=== PATIENT | male | born 1935 | race Caucasian/White ===

== ENCOUNTER 2017-04-26 10:31 | Inpatient (IN) | payer MEDICARE ==
[~2017-04-26] VITALS: Ht 172.7 cm; Wt 97.3 kg
--- NOTE | ~2017-04-26 | PR ---
[place], [place] PROGRESS NOTE NAME: CITLALLI CANTU [facility]: [id number] UNIT #: [id number] ROOM: 515 DOCTOR: MAYKEL Garcia,AZAR BIRTHDATE: [birth year] DOS: 05/02/2017 WOUND CARE FOLLOWUP NOTE SUBJECTIVE: The patient was seen today, his dressings were removed. He states he feels his legs are getting better. His breathing is comfortable, but does sometimes get short of breath when the oxygen is taken off. His daughter is at the bedside. He is going to be going home with home health that is planned when he is ready for discharge. OBJECTIVE: VITAL SIGNS: Temperature of 97.7, pulse of 51, respirations 20, blood pressure is 126/82. The dressings are removed. The legs look a lot better. There is quite a bit of new epithelial tissue seen. The edema has improved as well. The cellulitis is definitely improved. So, overall, there is a large improvement in his wounds. His wound culture grew Klebsiella and Streptococcus agalactiae. He is maintained on vancomycin and cefepime. LABORATORY DATA: His labs show white count of 11.3, hemoglobin of 12.7 and platelets of 233. Chem-7; sodium of 141, potassium which is 2.8, chloride of 93, BUN of 23 and his creatinine is down to 1.31, glucose is 173. ASSESSMENT AND PLAN: Chronic leg ulcerations, likely secondary to venous insufficiency, chronic edema and peripheral vascular disease as well as diabetes. He did have a biopsy done, the report is still pending, it was sent to [facility] for special staining. I would continue with the current dressing changes. They do appear to be working and he should follow up in the Wound Clinic upon discharge. AZAR BRAR MD CM:PNTRANS [id number] AZAR BRAR M.D. 05/02/17 1435 interface
--- NOTE | ~2017-04-26 | PR ---
[place], [place] PROGRESS NOTE NAME: [facility]I [facility]U [id number] UNIT #: [id number] ROOM: 507 DOCTOR: MIS GUTHRIE MD BIRTHDATE: [birth year] DOS: 04/28/2017 SUBJECTIVE: The patient was seen and evaluated in followup of urinary retention, acute kidney injury. Overall, he is doing well. He is sitting upright in a chair. His Fontaine catheter was removed by the primary service earlier today. He has not yet voided and was taken out about an hour and a half ago. He is afebrile. Temperature is 98.2, pulse 82, respiratory rate 20, blood pressure 132/68, pulse ox 94%. He has no acute chest pains, shortness of breath, nausea, vomiting. He states that he is moving his bowels. His creatinine is down to 1.9 from 2.5 and 3.0. Again, his lisinopril and his Lasix have been transiently held. His output had been fairly good with about 1.9 liters of urine output on a daily basis since admission. PHYSICAL EXAMINATION: GENERAL: Elderly, obese gentleman, chronically ill appearing, disheveled on original appearance. Lower extremity wounds are dressed, obese centrally, limiting abdominal exam. LUNGS: Fairly clear anteriorly and without wheeze. CARDIOVASCULAR: Rate regular. No audible rub. EXTREMITIES: The peripheral pulses are intact in the arm. ASSESSMENT AND PLAN: 1. Acute kidney injury, likely retention and obstructive uropathy. 2. hypertension. Blood pressures are acceptably controlled. Continue to hold lisinopril and Lasix for now. May use p.r.n. diuretic doses as needed. Monitor serial renal functions. Baseline creatinine was around 1.3-1.5 going back about 3-5 years ago, likely indicating CKD stage III. MIS GUTHRIE MD CM:PNTRANS [id number] MIS GUTHRIE MD 04/29/17 0658 interface
--- NOTE | ~2017-04-26 | PR ---
[place], [place] PROGRESS NOTE NAME[id number] UNIT #: [id number] ROOM: 515 DOCTOR: MIS GUTHRIE MD BIRTHDATE: [birth year] DOS: 05/02/2017 Followup of acute kidney injury with obstruction, urinary retention, hematuria. SUBJECTIVE: The patient is doing well, diuresing very well. Weights do not appear to be coming down, but legs do look less swollen and somewhat wrinkled when his dressings were taken down. There are still significant erythematous and darkening skin wounds with multiple breakdowns, poor foot care in general. His intake and output have been negative several liters for the last couple of days, but weight is only down from 97.6 to 96.7. His electrolytes are stable except for continued hypokalemia, looks like it was low on Tuesday, but it was not replaced. Creatinine is steady at 1.3. He otherwise feels well . Lower extremity wound care continues. OBJECTIVE: VITAL SIGNS: 126/82, 20, 51, 97.7, 96%. GENERAL: Awake and alert, pleasant elderly gentleman, chronically ill appearing, lying in bed. HEENT: Extraocular muscles are intact. Sclerae anicteric. Oropharynx clear. NECK: No JVD or lymphadenopathy, no carotid bruit. LUNGS: Lung og are diminished at the bases. No audible wheeze. CARDIOVASCULAR: Rate is controlled. No audible rub. No palpable lift or heave. GENITOURINARY: Fontaine catheter continues to have some gross hematuria that is light velasco in nature. MUSCULOSKELETAL: Grossly deconditioned and wounds continue to be fairly significant. LABORATORY DATA AND DIAGNOSTICS: White blood cell count 11.3, hemoglobin 12.7, platelets 233. Sodium 141, potassium 2.8, chloride 93, bicarb 39, BUN 23, creatinine 1.3, glucose 175, calcium 7.9, albumin 2.4, phosphorus 2.6. ASSESSMENT AND PLAN: 1. Acute kidney injury, improving, likely secondary to urinary retention and potentially some prerenal conditions at admission, improved by discontinuation of Lasix and lisinopril and placement of Fontaine catheter. Since late last week has been back on lisinopril and Lasix. Blood pressures are well controlled for the most part and volume is improving. We started him on a higher dose of diuretics and a lower dose of lisinopril to try to diurese him more effectively. I would recommend a CTA to evaluate for possible PAD probably in the next day or two, but hold his diuretic for 24 hours prior to the contrast exposure. Would also provide Mucomyst 600-1200 mg p.o. b.i.d. starting the day prior to the contrast exposure for contrast injury prophylaxis of his kidneys. At that point if there is anything significant there, he may need to be further evaluated by a facility with vascular surgery on staff. He certainly needs better wound care of his lower extremities and consideration for having Podiatry see him while here would be a good idea. 2. Severe hypokalemia, likely secondary to diuresis, increase in his diet and we will replace with potassium chloride 40 IV and 20 t.i.d. orally. His past magnesium levels were okay. We will need to closely monitor on for that. [place], [place] PROGRESS NOTE NAME: ALONDRACITLALLI D UNIT #: [id number] ROOM: [facility] DOCTOR: MIS GUTHRIE MD BIRTHDATE: [birth year] Continue wound care per the primary service and Infectious Disease dosing antibiotics. MIS GUTHRIE MD CM:PNTRANS [id number] MIS GUTHRIE MD 05/03/17 0034 interface
--- NOTE | ~2017-04-26 | CON ---
[place], [place] REPORT OF CONSULTATION NAME: CITLALLI CANTU [facility] [id number] UNIT #: [id number] ROOM: 507 DOCTOR: RAYMOND CHOE ED.D) BIRTHDATE: [birth year] DOS: 04/26/2017 HISTORY OF PRESENT ILLNESS: The patient is an 81-year-old male referred by the hospitalist for competency evaluation. At the present time, this patient is on the 5th floor at [facility]. He is and has two daughters living and 1 . I did discuss this case with his daughter, Ysabel Saul in [place]. The patient stated he worked at [employer] in the past and has been retired for many years. He [facility] [place]. His medical history is pertinent for atrial fibrillation, hypertension, benign prostatic hypertrophy, diabetes mellitus. His medications include potassium chloride, Flomax, terazosin, vitamin D, Lopressor, Cardizem, Lasix, glipizide and insulin. This patient states he does drink 2 beers per day, but otherwise, he uses no alcoholic beverages or cigarettes. This patient was awake, alert and oriented in all 3 spheres. He knew where he was and he knew the date. He had no difficulty with current events, whatsoever. His short and his long-term memory appear to be fairly good and in my opinion, he is competent to make informed healthcare decisions. He does not like medical care and never did and therefore, avoids going to the doctor and then waits too long and at that point in time ends up needing to be admitted. His legs were in very bad condition and he has been to the Wound Clinic here at the hospital in the past. He states he is willing to do the wound clinic again and also take the antibiotics that are prescribed and also have visiting nurses once he is discharged home if he does not need rehabilitation. His daughter is coming in in the next day or two to ensure that all is well with his home care coverage. DIAGNOSIS: Depressive disorder, not otherwise specified. RECOMMENDATIONS: In my opinion, this patient is competent to make informed healthcare decisions. Thank you very much for this consult. RAYMOND WALKER, ED.D CM:CONSTR:REPORT OF CONSULTATION 1628 04/26/17 7654 interface
--- NOTE | ~2017-04-26 | PR ---
[place], [place] PROGRESS NOTE NAME: CITLALLI CANTU UNIT #: [id number] ROOM: 507 DOCTOR: MAYKEL GarciaAZAR BIRTHDATE: [birth year] DOS: 04/28/2017 FOLLOWUP WOUND CARE NOTE SUBJECTIVE: The patient reports no specific issues with his wounds. He says they are feeling about the same. OBJECTIVE: VITAL SIGNS: His temperature is 97.9, pulse of 82, respirations 18, blood pressure is 122/58. WOUND EXAMINATION: The dressings were removed. There was some moderate amount of bloody drainage noted on the Maxorb. There were no new areas of blistering that I could see. A lot of the necrotic tissue has already been removed either by the debridement or by TheraHoney and dressings. The area was cleansed. Overall, the wounds appear about the same as yesterday. I do not see a big difference; the erythema, perhaps, is a little bit improved. His wound culture from yesterday is negative so far. His white count is down to 9.5. His hemoglobin is 11.9. His BUN is also improving at 30 and creatinine of 1.9. Hemoglobin A1c is 7.6. The path report is not back yet from the biopsy. ASSESSMENT AND PLAN: Chronic ulcerations of bilateral lower extremities in a diabetic patient with chronic edema and multiple medical problems. We are awaiting the biopsy report. I would avoid any further compression than a Tubigrip for now as he has peripheral vascular disease, the exact degree is not known, according to the Doppler ultrasound. We should consider a CT angiogram; however, with his renal insufficiency, I would like to wait until Nephrology feels it is okay to go ahead and do that test to further define his arterial status. This patient will need prolonged wound care as these wounds are fairly extensive. He apparently does not qualify for home health because he is not homebound. Looks like he came to the Wound Clinic several years ago, however, it looks like he only came one time. I will encourage the patient to follow up in our Wound Clinic once he is medically stable. In the meantime, we will continue with the current dressings. [place], [place] PROGRESS NOTE NAME: CITLALLI CANTU UNIT #: [id number] ROOM: [facility] DOCTOR: AZAR BRAR M.D. BIRTHDATE: [birth year] AZAR BRAR MD CM:KRISH [id number] AZAR BRAR M.D. 04/28/17 1357 interface
--- NOTE | ~2017-04-26 | CON ---
[place], [place] REPORT OF CONSULTATION [id number] UNIT #: [id number] ROOM: 507 DOCTOR: MAYKEL GarciaAZAR BIRTHDATE: [birth year] DOS: 04/27/2017 WOUND CARE CONSULTATION HISTORY OF PRESENT ILLNESS: This is an 81-year-old male with multiple medical problems who was admitted to the Emergency Room Department for problems with voiding. He had had some urinary retention over the past week with associated abdominal discomfort and shortness of breath, which apparently is not unusual for him and chronic edema. He was noted to have severe urinary retention when he was admitted to the ER with some renal failure. He was also noted to have in the ED bilateral lower extremity edema, skin necrosis, ulceration of the bilateral lower extremities, elevated troponins and BNP were also elevated from the Emergency Room Department. The patient does have known cardiomyopathy, severe mitral regurgitation, and mild pulmonary hypertension. The patient was therefore admitted for these above problems. Wound care has been consulted for these lower extremity ulcerations and skin necrosis. PAST MEDICAL HISTORY: Significant for congestive heart failure, chronic atrial fibrillation, history of ischemic cardiomyopathy, baseline ejection fraction back in 2007 was 15%, hyperlipidemia, hypertension, insulin-dependent diabetes, severe mitral regurgitation, stasis dermatitis of both legs, vitamin D deficiency. PAST SURGICAL HISTORY: No previous surgeries. He does have a history of urinary retention in the past. He follows up at the [facility]; however, he says he only goes about 2 times a year. SOCIAL HISTORY: He lives alone, does not smoke or drink. He is a past smoker, quit 30 years ago. FAMILY HISTORY: Significant for diabetes in the mother and cerebral hemorrhage in the father. ALLERGIES: IRBESARTAN FROM AVAPRO and SIMVASTATIN. CURRENT MEDICATIONS: That have been ordered are as follows, Lovenox 30 subq daily, aspirin 81 daily, Lopressor 100 p.o. b.i.d. He is on vancomycin 1500 mg IV q.48h. He was on Zosyn that looks like it was discontinued. He is on Restoril 15 mg p.o. at bedtime, Zofran 4 mg IV q.6h. p.r.n., morphine 2 mg IV q.4h. p.r.n., [place] one tablet q.4h. p.r.n., Dulcolax p.r.n. and Tylenol p.r.n. REVIEW OF SYSTEMS: He says really he has had these chronic ulcerations for years. They come and go off and on according to the patient. The patient is somewhat of a poor historian and he does not really take care of them. He does not put any special dressings on them. He has never been to a wound clinic that he is aware of. He says he knows that he just has not been taking care of them when he should be. When asked about his diabetes, he says he does not check his sugars. He denies any specific pain with the legs at this time. He says his breathing is about the same as yesterday. He does have some chronic shortness of breath and some orthopnea and is unable to lay flat. He denies any chest [place], [place] REPORT OF CONSULTATION NAME: CITLALLI CANTU UNIT #: [id number] ROOM: 507 DOCTOR: AZAR BRAR M.D. BIRTHDATE: [birth year] pain, nausea, vomiting or diarrhea. PHYSICAL EXAMINATION: VITAL SIGNS: Temperature is 98.6, pulse is 78, respirations 18, blood pressure is 126/67, pulse ox is 99% on 2 liters nasal cannula. GENERAL: This is an elderly male who appears markedly debilitated, pale and in no acute distress. HEENT: His extraocular movements are intact. Sclerae are anicteric. Oropharynx is clear and moist. NECK: There is no lymphadenopathy. LUNGS: Mild rales in the bases. CARDIOVASCULAR: S1, S2, irregularly irregular. ABDOMEN: Protuberant, soft, positive bowel sounds, and nontender. EXTREMITIES: He has chronic indurated edema, chronic venous stasis changes of both of his lower extremities. Pulses were difficult to feel. His toes are warm. He has got severe onychomycosis, multiple necrotic lesions in his lower extremities. He has necrotic lesions on his feet. His anterior right foot has an open area. He has got large area of necrosis, worse on the left than the right. His pulses once again are difficult to feel due to this severe chronic indurated edema. The left lower extremity wound upon admission, per x-rays, he has extensive skin necrosis with the periphery being eschar mostly, but the middle of the wound being fibrin and slough, moist and weepy apparently looking according to the pictures, but today a lot of that has been removed with the honey it looks like. 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 Most of multiple eschar type lesions are scattered throughout the anterior tibia, a cluster of them measuring approximately 8-10 cm x 7 cm in width. There is one open area in the middle with some visible fibrin slough present and he has blisters also noted with necrosis right below the knee. The periwound seems chronically erythematous but does not appear to be acutely tender. He even has some lesions present on his feet, but it is his left lower extremity as well as his right lower extremity anterior tibial area that is the worst. When asked specifically about the blisters, he said that most of them he thinks the lesions start out as blisters, but it is not quite clear because I think the patient is somewhat of a poor historian. Due to the multiple various wounds, it is easier to cluster them and like I said, they are pretty much encompass the left leg, I would say encompasses 80% of the anterior tibia and the right leg approximately 30-40% of the anterior tibia. There is also a small 3 x 3.8 x 0.1 ulceration on the anterior dorsum of the right foot. LABORATORY DATA: The patient had blood work done. His initial labs show white count of 12.6, hemoglobin of 14, platelets of 239, neutrophils were 81.5%. His Chem-7 shows a BUN of 38, creatinine of 2.55, sodium of 140, potassium 4.1, glucose was 158. His hemoglobin A1c was 7.6. LFTs were not done. He had elevated troponins when he was admitted at 0.075 with the elevated CPK of 1335, CK-MB high at 10.1 and myoglobin 1820. Troponin was high. CRP was at 8.67 and BNP was 4201. He had a chest x-ray done which showed stable chronic lung changes without focal [place], [place] REPORT OF CONSULTATION NAME: FERMIN CANTUSHAUNA Hernandez UNIT #: [id number] ROOM: 507 DOCTOR: MAYKEL Garcia,AZAR DOS SANTOSTE: [birth year] infiltrate, edema or effusion. His lower extremity venous Doppler showed no evidence for DVT. Lower extremity arterial ultrasound showed there was flow in all of the arteries even the pedal areas except for the anterior tibias on both of the lower extremities were not visualized. The right iliac waveform is essentially monophasic. His common femoral appears to be triphasic and then triphasic waveforms are clearly seen due to superficial femoral artery on the right side. Transitions to monophasic and popliteal artery and tibial vessel is again seen, so there is diffuse monophasic waveforms again on the left side as well, but anterior flow is not seen, but there is reconstitution of dorsalis pedis artery. So, the impression was multilevel disease, possibly bilaterally in this study, limited without ability to do an ankle brachial index. Consider CTA of the aorta and lower extremities was what I had mentioned. He did have urinary retention too and large amount of urine was obtained when they first put the catheter in the Emergency Room Department, he still has a Fontaine catheter in that is draining dark stained urine that does appear to be old blood. Due to the extensive area of necrosis present on examination, a debridement was recommended. The patient was agreeable, consent was obtained, possible side effects including infection, bleeding and pain. Also, I did suggest that a punch biopsy should be obtained as well and that was also agreed upon. The area was cleansed and prepped with Cetacaine spray. An area was chosen on the right anterior tibia where there was a blistered area that was cleansed and prepped with Betadine and injected with lidocaine 1%, 1 mL was utilized, and a tissue punch biopsy was obtained. There was a moderate amount of bleeding post-biopsy of this area that was controlled with pressure. Several of the obvious necrotic areas were debrided selectively, tissue removed was just nonviable tissue, fibrin slough, biofilm and also through subcutaneous tissue. There was a moderate amount of bleeding that was controlled with pressure. I would say 20-30% of the wounds on the right leg were debrided as well as 50-60% of the left lower leg were debrided, mostly the periphery of the wound as well as obvious necrotic area. A swab culture was also obtained of the left lower extremity wound. ASSESSMENT AND PLAN: Chronic ulcerations in a patient with diabetes. He states that the lesion start out as blisters. 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 So, hopefully, we will get some more information after the pathology report is back. In addition, I think that a bullous pemphigoid may also be a consideration as the lesions start out as blisters and then open up into necrotic areas. So that may be also something to consider in which case steroids may be indicated. In the meantime, local wound care by cleansing it, using the debriding agents TheraHoney and absorptive agents with silver for antimicrobial purposes and following cultures as well as antibiotic therapy and edema control will be continued. However, he does have some vascular disease noted. It is not clear if there is critical stenosis or not. He has had a probable myocardial injury, but is refusing stress test, cardiac catheterization. He has ischemic cardiomyopathy as well and is being managed by [place], [place] REPORT OF CONSULTATION NAME: ALONDRACITLALLI D UNIT #: [id number] ROOM: 507 DOCTOR: AZAR BRAR M.D. BIRTHDATE: [birth year] Cardiology. In addition, I did discuss that if we were to recommend longterm facility for wound care if he would be willing to go for at least short term, he is quite debilitated and weak in general, however, the patient was pretty adamant at the time that he is refusing to go anywhere other than his house and I did advise the he will need somebody to help him with his dressings, but he is really not interested in hearing about that at this time. Thank you for this consult and I will follow along with you. AZAR BRAR MD CM:CONSTR:REPORT OF CONSULTATION 50 04/27/171933 interface
--- NOTE | ~2017-04-26 | PR ---
[place], [place] PROGRESS NOTE NAME: ICTLALLI CANTU UNIT #: [id number] ROOM: 507 DOCTOR: AZAR BRAR M.D. BIRTHDATE: [birth year] DOS: 04/29/2017 WOUND CARE FOLLOWUP NOTE CHIEF COMPLAINT: Bilateral leg ulcerations. HISTORY OF PRESENT ILLNESS: The patient reports no new specific issues. He was able to get out of bed with therapy and walk in his room a little bit. He reports that his legs are about the same in general, he does not have any significant pain at this time. No fevers or chills are noted. OBJECTIVE: VITAL SIGNS: Stable. Temperature 98, pulse 86, respirations 18, blood pressure is 122/74, pulse ox is 96% on 3.5 liters. WOUND EXAMINATION: The dressings were removed. Overall, there is less drainage and the wounds look much carbonating stone cleaner than they did. The erythema around the periwound seems to have calmed down a bit. There is no odor present. The wounds are still fairly large, worse on the left leg than the right leg, but overall appears stable at this time. The wound culture from the was light Gram-negative bacilli so far and that is the only thing that is growing so far. LABORATORY DATA: He does not have a recent CBC, but his BUN is 25 and his creatinine is coming down at 1.55. ASSESSMENT AND PLAN: The patient likely has a combination of venous and arterial insufficiency. I am hesitant to use further compression until we obtain further vascular studies or vascular consultation. In the meantime, we will continue with the same dressing. If the wounds are starting to dry up the Maxorb does not need to be utilized. I would recommend that if his renal function continues to improve and it is okay with the renal that we should get the CT angiogram of the aorta and lower extremities while the patient is in-house to further evaluate his vascular status and most likely if the patient does not end up going to [facility] facility, I would recommend that he follow up in the [facility] for continued wound care. His tissue biopsy is still pending. [place], [place] PROGRESS NOTE NAME: CITLALLI CANTU UNIT #: [id number] ROOM: 507 DOCTOR: AZAR BRAR M.D.TE: 34 AZAR BRAR MD CM:KRISH [id number] AZAR BRAR M.D. 04/29/17 1040 interface
--- NOTE | ~2017-04-26 | CON ---
[place], [place] REPORT OF CONSULTATION [facility]: [facility]I [facility]ANTU [facility]: [id number] UNIT #: [id number] ROOM: 507 DOCTOR: BRANDY RODRIGUEZ MD BIRTHDATE: [birth year] DOS: 04/26/2017 REASON FOR CONSULTATION: Elevated troponin. HISTORY OF PRESENT ILLNESS: The patient is an 81-year-old man who is typically followed through the physicians of the [facility]. He states that he is not aware of any heart disease and does not follow with a subsystems engineer. Review of old records, however, shows that he was seen by Dr. Brad Erickson of the [facility] in 11/2013. Dr. Erickson's note indicates that the patient has a "known severe ischemic cardiomyopathy" based on an echocardiogram that had been performed at the [facility] in 11/2007. The ejection fraction at that time was 15% with a globally dilated left ventricle and severe mitral insufficiency. Based on the records available to me, he has not had another echocardiogram since then. The patient is known to be in atrial fibrillation, which is felt to be a permanent rhythm for him. Despite that, he was not on anticoagulation aside from aspirin prior to admission. The patient presented to the hospital on this occasion with trouble passing his urine. Fontaine was placed. He was found to be in acute renal failure with a creatinine of 3.03. Cardiac biomarkers were obtained and his troponins were elevated at 0.102 on admission. His most recent troponin done earlier today was 0.075. Because of this, cardiology was consulted. The patient denies any chest pain or palpitations. He denies lightheadedness or syncope. He states that he does get breathless with exertion, but denies breathlessness at rest. PAST MEDICAL HISTORY: Includes, 1. Chronic systolic congestive heart failure. 2. Permanent atrial fibrillation. 3. Ischemic cardiomyopathy with baseline ejection fraction of 15% and severe mitral insufficiency, documented by echocardiography 02/2008. 4. Essential hypertension. 5. Hyperlipidemia. 6. Type 2 diabetes mellitus. 7. History of stasis dermatitis on his legs. MEDICATIONS PRIOR TO ADMISSION: Albuterol 2 puffs q.6 h., aspirin 325 mg daily, vitamin D 1000 units daily, digoxin 250 mcg daily, diltiazem 120 mg daily, furosemide 40 mg b.i.d., glipizide 10 mg daily, lisinopril 40 mg daily, metoprolol 100 mg b.i.d., potassium 20 mEq b.i.d., tamsulosin 0.4 mg daily, terazosin 5 mg at bedtime, and Lantus insulin 28 units at bedtime. ALLERGIES: The patient lists allergies to IRBESARTAN and SIMVASTATIN. FAMILY HISTORY: The patient's father at age 59 from a cerebral hemorrhage. His mother of complications of diabetes at age 86. REVIEW OF SYSTEMS: The patient denies diplopia, but has poor vision. He denies focal weakness. He denies nausea or vomiting. He denies fevers, chills, sweats or recent weight change. He denies orthopnea or PND. He denies lightheadedness [place], [place] REPORT OF CONSULTATION NAME: CITLALLI CANTU UNIT #: [id number] ROOM: 507 DOCTOR: BRANDY RODRIGUEZ MD BIRTHDATE: [birth year] or syncope. He denies hemoptysis or hematemesis. He denies fevers, chills or sweats. He denies change in bowel or bladder habits. He denies blood in his urine or stools. He does note that his legs are chronically swollen. He states that they do not hurt to walk on, but they hurt to touch. He denies polydipsia or polyuria. The remainder of the review of systems is negative except as noted above. SOCIAL HISTORY: The patient lives alone. He tells me that he still drives and does his own shopping, cooking and cleaning. PHYSICAL EXAMINATION: GENERAL: The patient is an elderly white male who is awake and alert. VITAL SIGNS: Pulse is 126 and irregularly irregular, blood pressure is 135/80. He is afebrile. He weighs 97.6 kg and has a body mass index of 32.7. HEENT: Normocephalic, atraumatic. Extraocular muscles are intact. Sclerae are clear. Pupils are equal, round and reactive to light. The oral mucosa is moist. Tongue is midline. NECK: Supple. He does have jugular distention with hepatojugular reflux when sitting in a 45-degree angle. Carotids are full without bruits. Respirations are unlabored at rest. He does have expiratory prolongation bilaterally and scattered wheezes bilaterally. He has no presacral edema or chest wall tenderness. CARDIOVASCULAR: His heart has an irregularly irregular rhythm with distant tones. There are no obvious murmurs or gallops present. ABDOMEN: Obese, but soft and normally active without masses, organomegaly or bruits. EXTREMITIES: Showed 2+ edema bilaterally. He does have chronic stasis changes on his ankles. I could not feel pulses on his feet. LABORATORY DATA: I reviewed his electrocardiogram. He has atrial fibrillation with a rapid ventricular response. He has nonspecific T-wave abnormalities, but no acute ST elevation or depression. His chest x-ray shows stable chronic lung changes without edema or effusions and without focal infiltrates. Hemoglobin is 14.3, white count 12,600, platelet count 239,000. Digoxin level was 0.48, sodium is 139, potassium 4.3, chloride 96, CO2 28, BUN 37, creatinine 3.03. Peak troponin was measured on admission, it was 0.102. IMPRESSIONS: 1. Elevated troponin, most likely this is due to a myocardial injury. This may represent an acute coronary event or type 2 myocardial injury from demand ischemia. 2. Acute renal failure. 3. Permanent atrial fibrillation. 4. History of severe ischemic cardiomyopathy with ejection fraction 15% in 2007. 5. History of severe mitral insufficiency. 6. History of diabetes mellitus. PLAN: I discussed options with the patient. He is adamant that he does not want to have a lot of stuff done. He did agree to an echocardiogram and to [place], [place] REPORT OF CONSULTATION NAME: CIT[facility]ALLI CANTU [facility]: [id number] UNIT #: [id number] ROOM: 507 DOCTOR: BRANDY RODRIGUEZ MD BIRTHDATE: [birth year] adjustments in his medications, but told me that he did not want to have a stress test, cardiac catheterization, or any consideration of any type of surgery. This specifically would preclude placement of an ICD or mitral valve repair. Based on the patient's desires, I think that there should be a cheryl discussion with him regarding code status. For now, however, we will obtain an echocardiogram. As much as possible, we should avoid diltiazem in his long-term rate control since this is a negative inotrope. We should rely on metoprolol and possibly digoxin as long as it can be used safely. TYRONE inhibitors could be used to help with left ventricular dysfunction. If his renal function will allow it, alternatively we could place him on hydralazine and nitrates as unloading therapies. Further recommendations will depend upon the results of his echo. We will follow him with his other physicians and we thank the hospitalist physicians for asking our advice regarding his care. BRANDY RODRIGUEZ MD CM:CONSTR:REPORT OF CONSULTATION 10 04/27/17 0024 interface
--- NOTE | ~2017-04-26 | PR ---
[place], [place] PROGRESS NOTE NAME: CITLALLI CANTU [facility] #: [id number] UNIT #: [id number] ROOM: 507 DOCTOR: BRANDY RODRIGUEZ MD BIRTHDATE: [birth year] DOS: 04/27/2017 SUBJECTIVE: The patient was seen at his bedside today, 04/27/2017, for followup of his ischemic cardiomyopathy and permanent atrial fibrillation. Since I saw him yesterday, his rate has been reasonably well controlled with metoprolol and digoxin. Blood pressures are slightly elevated. His fluids are being restricted. He is able to lay almost flat and is breathing comfortably. PHYSICAL EXAMINATION: VITAL SIGNS: His pulse is 95 and irregularly irregular. Blood pressure is 155/68. He is afebrile. He weighs 97.6 kg and has a body mass index of 32.7. NECK: Supple. He has jugular venous distention and hepatojugular reflux when sitting at a 30-degree angle. Carotids are full. LUNGS: Respirations are unlabored at rest. He does have expiratory prolongation bilaterally and scattered wheezes. There is no presacral edema or chest wall tenderness. HEART: Has an irregularly irregular rhythm with distant tones. He has no obvious murmurs or gallops. ABDOMEN: Obese, but otherwise benign, without masses, organomegaly or bruits. EXTREMITIES: His ankles are bandaged. Pulses are absent in the feet. An echocardiogram has been requested, but has not yet been done. LABORATORY DATA: No further troponins have been obtained. Creatinine was 3.03 on admission and has now fallen to 2.55. His BUN was 37 on admission and is now 38. Hemoglobin is 12.6, which is down from 14.3, white count is 11,300 down from 12,600. IMPRESSION: 1. Elevated troponin, most likely due to a myocardial injury. This could represent an acute coronary event or a type 2 myocardial injury from demand ischemia. 2. Acute renal failure, which appears to be improving gradually. 3. Permanent atrial fibrillation. 4. Cardiomyopathy, which was reported to be due to severe ischemic myocardial damage. Ejection fraction is estimated to be 15% in 2007. 5. History of severe mitral insufficiency. 6. History of diabetes mellitus. PLAN: We will await the results of his echocardiogram. In the interim, given his renal insufficiency, but obvious heart failure and hypertension, I will add hydralazine and nitrates to his regimen. We will continue to follow him with his other physicians. I thank the hospitalist group for asking our advice regarding his care. [place], [place] PROGRESS NOTE NAME: ALONDRACITLALLI D UNIT #: [id number] ROOM: [facility] DOCTOR: BRANDY RODRIGUEZ MD BIRTHDATE: [birth year] BRANDY RODRIGUEZ MD CM:PNTRANS [phone] BRANDY RODRIGUEZ MD 04/27/172100 interface
--- NOTE | ~2017-04-26 | PR ---
[place], [place] PROGRESS NOTE NAME: CITLALLI CANTU UNIT #: [id number] ROOM: 507 DOCTOR: MIS GUTHRIE MD BIRTHDATE: [birth year] DOS: 04/30/2017 Seen in followup of acute kidney injury. SUBJECTIVE: The patient seems to be doing well and is diuresing very well. He made well over 5 liters of urine in the last 36 hours or so. Still some hematuria has been noted. The patient had the Fontaine catheter reinserted because of failure to void. His daughter had made it in from [place] and corroborates the story that he has had issues with his prostate in the past, but never had followed up. He is supposed to be on medications. I suspect that those were the Flomax that he was taking and he was supposed to be taking, I believe, Proscar as well, not sure of that, fell off at some point. She is not clear whether or not he was taking his medications reliably or not. She does not think that he was taking his Lasix because he was having such difficulty urinating at home which makes sense. We resumed his lisinopril at a lower dose and his Lasix at a higher dose given his volume overload and his significant lower extremity edema and he seems to be tolerating this well. His BUN and creatinine are stable from yesterday 22 and 1.54. His electrolytes are stable. His potassium is slightly lower at 3.7, sodium is slightly higher at 144. His glucose is okay and his appetite is okay. His vancomycin level was 7.1 this morning. White blood cell count has improved to 9.3 and his hemoglobin is 11.7, platelet count 198. Would not recommend the CTA to look for his possible PAD, yet recommend possibly doing this as an outpatient with a little bit more time once his diuretic can be cut to a stable daily dose. I think that he is going to need a urologist in the long run for his urinary retention issues and likely need a cystoscopy with further evaluation of his prostate and possible prostatectomy via TURP or continued medical management, close followup. I would think that discharge with the catheter with the home nurse and a plan to visit in an outpatient setting with the urologist would be recommended or transfer, but I do not think that he necessarily needs the transfer if a urologist can see him in the office. I would like to see if we can diurese him a little bit better and render him somewhat closer to euvolemic with stable lab values and stable electrolytes and discharge him on a good dose of his cardiac medications for severe CHF and diastolic and systolic cardiomyopathy. [place], [place] PROGRESS NOTE NAME: CITLALLI CANTU Mary UNIT #: [id number] ROOM: 507 DOCTOR: MIS GUTHRIE MD BIRTHDATE: [birth year] MIS GUTHRIE MD CM:KRISH [phone] MIS GUTHRIE MD 04/30/172306 interface
--- NOTE | ~2017-04-26 | PR ---
[place], [place] PROGRESS NOTE NAME: CITLALLI CANTU [facility] #: [id number] UNIT #: [id number] ROOM: 507 DOCTOR: BRANDY RODRIGUEZ MD BIRTHDATE: [birth year] DOS: 04/29/2017 SUBJECTIVE: The patient was seen at his bedside today for followup of his chronic systolic and diastolic congestive heart failure and valvular heart disease. He also has permanent atrial fibrillation. He tells me that he feels well and is breathing easily. His renal functions have improved with Fontaine catheter bladder drainage. I did have a discussion with his private banker, Dr. Jules. Dr. Jules feels that since his renal functions have improved that he would tolerate an TYRONE inhibitor again. We are therefore stopping his hydralazine and nitrate therapies and putting him back on lisinopril. PHYSICAL EXAMINATION: VITAL SIGNS: Today, his pulse is 96 and irregularly irregular, blood pressure is 150/84. He is afebrile. NECK: Supple. He has no jugular distention. Carotids are full. LUNGS: Respirations are unlabored. He has decreased breath sounds at the bases. HEART: Has an irregularly irregular rhythm with distant tones. There are no obvious murmurs or gallops. ABDOMEN: Obese, but otherwise benign, without masses, organomegaly or bruits. EXTREMITIES: Bandaged. He does have open sores on his legs. His echocardiogram yesterday did show normal left ventricular size with moderate concentric left ventricular hypertrophy. The left ventricle was globally hypokinetic with severe impairment of left ventricular systolic function. Ejection fraction is between 20 and 30% with stage 3 diastolic relaxation abnormalities. Mitral valve leaflets are restricted consistent with a low flow state. There is moderate to severe laterally directed mitral insufficiency. IMPRESSION: 1. Elevated troponin, most likely due to myocardial injury. This could represent an acute coronary event or a type 2 myocardial injury from demand ischemia. I have discussed these issues with the patient and he is not interested in any further evaluation. 2. Acute renal failure, which appears to be improving with adequate bladder drainage and is probably due to obstructive uropathy. 3. Permanent atrial fibrillation. 4. Cardiomyopathy, which in the past has been felt to be due to severe ischemic myocardial damage. 5. History of severe mitral insufficiency. 6. History of diabetes mellitus. PLAN: For now, we will resume his TYRONE inhibitor as an unloading agent. As noted above, the patient is not interested in any invasive evaluation or management of his coronary and valvular heart disease. At this time, he does have open wounds on his legs and probably would not be a good candidate for any invasive procedures in any case. We will continue to watch him intermittently for adjustment of medicines, etc. We thank the hospitalist physicians for asking our advice regarding his care. [place], [place] PROGRESS NOTE NAME: CITLALLI CANTU UNIT #: [id number] ROOM: 507 DOCTOR: BRANDY RODRIGUEZ MD BIRTHDATE: [birth year] BRANDY RODRIGUEZ MD CM:PNTRANS [id number] BRANDY RODRIGUEZ MD 04/30/17 0120 interface
--- NOTE | ~2017-04-26 | PR ---
[place], [place] PROGRESS NOTE NAME: CITLALLI CANTU [facility] #: [id number] UNIT #: [id number] ROOM: 507 DOCTOR: BRANDY RODRIGUEZ MD BIRTHDATE: [birth year] DOS: SUBJECTIVE: The patient was seen at his bedside today for followup of his mitral insufficiency and left ventricular dysfunction. He tells me that he feels relatively well. I did review his echocardiogram. His ejection fraction is now about 30%, which is better than it was several years ago, but he still has moderate to severe mitral insufficiency. I explained to him that we can treat this with medications, but the real solution to the problem is surgical and he told me that he would not consider that. For now, we will continue unloading therapies with hydralazine and isosorbide. Since he does have renal insufficiency TYRONE inhibitors are contraindicated. The patient is tolerating hydralazine and nitrates thus far and tells me he is breathing better. PHYSICAL EXAMINATION: VITAL SIGNS: Today, his pulse is 80 and regular, blood pressure is 124/62. He is afebrile. NECK: Supple. He does have mild jugular distention with hepatojugular reflux. Carotids are full. I heard no bruits. LUNGS: Respirations are unlabored. His chest has decreased breath sounds bilaterally. HEART: Has an irregularly irregular rhythm with distant tones. There are no obvious murmurs or gallops that could be heard. EXTREMITIES: Showed bilateral lesions. His ankles are bandaged and pulses are absent in the feet. DIAGNOSTIC STUDIES: The echocardiogram as noted above does show a dilated left atrium with moderate to severe mitral insufficiency. Left ventricle was normal sized with moderate concentric left ventricular hypertrophy and global hypokinesis. Estimated ejection fraction is about 30%. He does have stage 3 diastolic dysfunction. IMPRESSION: 1. Elevated troponin, most likely due to a myocardial injury. This is probably a type 2 myocardial injury from demand ischemia. 2. Acute renal failure, which appears to be gradually improving. 3. Permanent atrial fibrillation. 4. Cardiomyopathy. In the past, this was reported to be severe ischemic cardiomyopathy, ejection fraction is now about 30%. 5. Fvuldrft-so-rahpif mitral insufficiency. 6. Diabetes mellitus. PLAN: We will continue to titrate his hydralazine and nitrates up as tolerated. The patient has refused any consideration of an invasive evaluation or management and we will respect his request. I thank the hospitalist group for asking our advice regarding his care. [place], [place] PROGRESS NOTE NAME: FERMIN CANTUSHAUNA Hernandez UNIT #: [id number] ROOM: 507 DOCTOR: BRANDY RODRIGUEZ MD BIRTHDATE: [birth year] BRANDY RODRIGUEZ MD CM:PNTRANS [id number] BRANDY RODRIGUEZ MD 04/29/17 0037 interface
--- NOTE | ~2017-04-26 | PR ---
[place], [place] PROGRESS NOTE NAME: CITLALLI CANTU UNIT #: [id number] ROOM: 507 DOCTOR: SANTO GRIDER MD BIRTHDATE: [birth year] DOS: 05/01/2017 ROOM #: 507. REASON FOR VISIT: Cardiomyopathy and valvular heart disease. SUBJECTIVE: He is alert, oriented, in no acute distress. He wanted to go home, but denies any chest pain, palpitations. Breathing is much better. Edema is slightly improved. No orthopnea, no PND. No fever or chills. No cough, no hemoptysis. REVIEW OF SYSTEMS: Review of the 8 systems negative except as mentioned above. PHYSICAL EXAMINATION: VITAL SIGNS: Blood pressure 160/90, pulse 72 and respirations 18. GENERAL: Alert, comfortable, in no acute distress. HEENT: Pupils are round and equal. No jaundice. Tongue was moist and pharynx was clear. NECK: Supple. No distended neck veins. No carotid bruit. CHEST: Symmetrical, nontender. LUNGS: Few scattered rhonchi and diminished at bases. HEART: Slightly irregular. No S3. Grade 2/6 systolic murmur. ABDOMEN: Benign, nontender. Bowel sounds normal. EXTREMITIES: Showed 2+ pitting edema. Medications and labs are reviewed as available. IMPRESSION: 1. Chronic systolic heart failure, improving. 2. Mitral regurgitation, had declined any valvular surgery. The patient declined ICD. 3. Chronic atrial fibrillation. 4. Hypertension. RECOMMENDATIONS: 1. Continue current medication as the patient declined further testing as well as ICD or mitral valve surgery. 2. Possible discharge in 24-48 hours and he will [facility] with [facility] after discharge. 3. There is no family at bedside at the time of my examination. [place], [place] PROGRESS NOTE NAME: FERMIN CANTULEY Mary UNIT #: [id number] ROOM: 507 DOCTOR: SANTO GRIDER MD BIRTHDATE: [birth year] SANTO GRIDER MD CM:PNTRANS [id number] SANTO GRIDER MD 05/01/17 2212 interface
[~2017-04-26 10:31] MED LIST: ALBUTEROL0.09 MG/A1 INH; ASPIRIN325 MG PO; CARDIZEM CD120 MG PO; FLOMAX0.4 MG PO; FUROSEMIDE40 MG PO; GLIPIZIDE10 MG PO; HUMULIN R100 U/ML SC; K-DUR 1010 MEQ PO; LANOXIN0.125 MG PO; LANOXIN0.25 MG PO; LANTUS100 U/ML SC; LISINOPRIL40 MG PO; LOPRESSOR100 MG PO; LOPRESSOR50 MG PO; METOPROLOL SR50 MG PO; METOPROLOL50 MG PO; NORVASC10 MG PO; POTASSIUM20 MEQ PO; SEPTRA 400 MG-81 TAB PO; TERAZOSIN5 MG PO; VITAMIN D1000 IU PO
[2017-04-26 10:38] VITALS: BP 146/60
[2017-04-26 11:26] VITALS: BP 124/61
[2017-04-26 11:28] LABS: BILIRUBIN NEGATIVE (NEGATIVE); BLOOD 3+ (NEGATIVE); CLARITY SL CLOUDY (CLEAR); COLOR YELLOW (YELLOW); GLUCOSE NEGATIVE (NEGATIVE); KETONE NEGATIVE (NEGATIVE); LEUKO ESTERASE NEGATIVE (NEGATIVE); NITRITE NEGATIVE (NEGATIVE); PH 5.5 (5.0-9.0); PROTEIN 1+ (NEGATIVE); UROBILINOGEN 0.2 E.U./dl (0.2-1.0)
[2017-04-26 11:33] LABS: BACTERIA TRACE; RBC 51-100 rbc/hpf (0-2); URINE REFLEX COMMENT YES (NO)
[2017-04-26 11:41] LABS: BASO # 0.1 10*3/uL (0.0-0.1); BASO % 0.4 % (0.0-1.0); EOS # 0.1 10*3/uL (0.0-0.4); EOS % 0.6 % (1.0-4.0); HEMATOCRIT 43.9 % (42.0-52.0); HEMOGLOBIN 14.3 g/dl (14.0-18.0); LYMPH % 7.5 % (27.0-41.0); MEAN CELL VOLUME 88.5 fl (80.0-94.0); MEAN CORPUSCULAR HGB 28.8 pg (27.0-31.0); MEAN CORPUSCULAR HGB CONC 32.6 g/dl (33.0-37.0); MEAN PLATELET VOLUME 11.3 fl (9.6-12.3); MONO # 1.2 10*3/uL (0.1-1.0); MONO % 9.5 % (3.0-9.0); NEUT # 10.3 10*3/uL (2.3-7.9); NEUT % 81.7 % (47.0-73.0); PLATELET COUNT AUTOMATED 239 10*3/uL (130-400); RED BLOOD COUNT 4.96 10*6/uL (4.50-5.90); RED CELL DISTRI WIDTH 14.5 % (0-14.5); WHITE BLOOD COUNT 12.6 10*3/uL (4.8-10.8)
[2017-04-26 11:56] LABS: INTERNATIONAL NORM RATIO 1.2 (2.0-3.5); PROTHROMBIN TIME 12.9 SECONDS (9.0-12.4)
[2017-04-26 11:57] LABS: ALBUMIN 3.1 gm/dl (3.1-4.5); BILIRUBIN, TOTAL 1.2 mg/dl (0.2-1.0); C-REACTIVE PROTEIN 8.67 MG/DL (0-0.3); MAGNESIUM 2.7 mg/dL (1.5-2.1); POTASSIUM 4.3 mmol/L (3.5-5.1); TOTAL PROTEIN 7.1 gm/dL (6.4-8.2)
[2017-04-26 12:01] LABS: CKMB 10.1 ng/ml (0.5-3.6); TROPONIN I 0.102 ng/ml (<0.045)
[2017-04-26 12:19] LABS: DIGOXIN 0.48 ng/ml (0.8-2.0)
[2017-04-26 13:24] VITALS: BP 130/63
[2017-04-26 15:40] VITALS: BP 135/83
[2017-04-26 20:00] VITALS: BP 92/51
[2017-04-27] VITALS: BP 134/62
[2017-04-27 06:18] LABS: BASO # 0.1 10*3/uL (0.0-0.1); BASO % 0.5 % (0.0-1.0); EOS # 0.1 10*3/uL (0.0-0.4); EOS % 1.1 % (1.0-4.0); HEMATOCRIT 39.2 % (42.0-52.0); HEMOGLOBIN 12.6 g/dl (14.0-18.0); LYMPH # 0.8 10*3/uL (1.3-4.4); LYMPH % 7.4 % (27.0-41.0); MEAN CELL VOLUME 90.7 fl (80.0-94.0); MEAN CORPUSCULAR HGB 29.2 pg (27.0-31.0); MEAN CORPUSCULAR HGB CONC 32.1 g/dl (33.0-37.0); MEAN PLATELET VOLUME 11.1 fl (9.6-12.3); MONO # 1.3 10*3/uL (0.1-1.0); MONO % 11.2 % (3.0-9.0); NEUT % 79.5 % (47.0-73.0); PLATELET COUNT AUTOMATED 216 10*3/uL (130-400); RED BLOOD COUNT 4.32 10*6/uL (4.50-5.90); RED CELL DISTRI WIDTH 14.6 % (0-14.5); WHITE BLOOD COUNT 11.3 10*3/uL (4.8-10.8)
[2017-04-27 06:40] LABS: POTASSIUM 4.1 mmol/L (3.5-5.1)
[2017-04-27 06:47] LABS: FREE T4 1.16 ng/dl (0.76-1.46); THYROID STIM HORMONE (HS) 1.21 uIU/ml (0.358-4.75)
[2017-04-27 07:23] LABS: HEMOGLOBIN A1c 7.6 % (4.8-5.6)
[2017-04-27 07:59] LABS: FOLIC ACID 5.99 ng/mL (>5.38)
[2017-04-27 08:00] VITALS: BP 122/68
[2017-04-27 08:13] LABS: HEPATITIS C VIRUS ANTIBODY <0.1 s/co (0.0-0.9)
[2017-04-27 12:00] VITALS: BP 126/67
[2017-04-27 16:00] VITALS: BP 155/68
[2017-04-27] MEDS ORDERED: NORVASC5 MG PO (17:02)
[2017-04-27] MEDS ORDERED: LIPITOR40 MG PO (17:03)
[2017-04-27] MEDS ORDERED: KLOR-CON 1010 ME1 PO (17:04)
[2017-04-27] MEDS ORDERED: ASPIRIN81 M1 PO (17:04)
[2017-04-27] MEDS ORDERED: ELIQUIS5 M1 PO (17:05)
[2017-04-27] MEDS ORDERED: DIGOX0.125 MG PO (17:05)
[2017-04-27] MEDS ORDERED: LOPRESSOR50 M1 PO (17:06)
[2017-04-27 20:00] VITALS: BP 122/66
[2017-04-28] VITALS: BP 111/60
[2017-04-28 06:47] LABS: BASO # 0.1 10*3/uL (0.0-0.1); BASO % 0.8 % (0.0-1.0); EOS # 0.2 10*3/uL (0.0-0.4); EOS % 1.9 % (1.0-4.0); HEMATOCRIT 38.9 % (42.0-52.0); HEMOGLOBIN 11.9 g/dl (14.0-18.0); LYMPH # 1.2 10*3/uL (1.3-4.4); LYMPH % 12.4 % (27.0-41.0); MEAN CELL VOLUME 93.7 fl (80.0-94.0); MEAN CORPUSCULAR HGB 28.7 pg (27.0-31.0); MEAN CORPUSCULAR HGB CONC 30.6 g/dl (33.0-37.0); MEAN PLATELET VOLUME 11.3 fl (9.6-12.3); MONO # 1.3 10*3/uL (0.1-1.0); MONO % 13.5 % (3.0-9.0); NEUT # 6.8 10*3/uL (2.3-7.9); NEUT % 71.1 % (47.0-73.0); PLATELET COUNT AUTOMATED 190 10*3/uL (130-400); RED BLOOD COUNT 4.15 10*6/uL (4.50-5.90); RED CELL DISTRI WIDTH 14.5 % (0-14.5); WHITE BLOOD COUNT 9.5 10*3/uL (4.8-10.8)
[2017-04-28 07:11] LABS: POTASSIUM 4.6 mmol/L (3.5-5.1)
[2017-04-28 08:00] VITALS: BP 122/58
[2017-04-28 12:00] VITALS: BP 132/68
[2017-04-28 16:00] VITALS: BP 124/62
[2017-04-28 20:00] VITALS: BP 132/70
[2017-04-29] VITALS: BP 116/71
[2017-04-29 07:27] LABS: POTASSIUM 3.9 mmol/L (3.5-5.1)
[2017-04-29 08:00] VITALS: BP 122/74
[2017-04-29 12:00] VITALS: BP 150/84
[2017-04-29 16:00] VITALS: BP 148/74
[2017-04-29 20:00] VITALS: BP 116/53
[2017-04-29 22:00] VITALS: BP 120/60
[2017-04-30] VITALS: BP 122/78
[2017-04-30 06:37] LABS: BASO # 0.1 10*3/uL (0.0-0.1); BASO % 0.6 % (0.0-1.0); EOS # 0.2 10*3/uL (0.0-0.4); EOS % 2.2 % (1.0-4.0); HEMATOCRIT 38.6 % (42.0-52.0); HEMOGLOBIN 11.7 g/dl (14.0-18.0); LYMPH % 10.6 % (27.0-41.0); MEAN CELL VOLUME 95.1 fl (80.0-94.0); MEAN CORPUSCULAR HGB 28.8 pg (27.0-31.0); MEAN CORPUSCULAR HGB CONC 30.3 g/dl (33.0-37.0); MEAN PLATELET VOLUME 11.2 fl (9.6-12.3); MONO # 0.9 10*3/uL (0.1-1.0); MONO % 10.2 % (3.0-9.0); PLATELET COUNT AUTOMATED 198 10*3/uL (130-400); RED BLOOD COUNT 4.06 10*6/uL (4.50-5.90); RED CELL DISTRI WIDTH 14.1 % (0-14.5); WHITE BLOOD COUNT 9.3 10*3/uL (4.8-10.8)
[2017-04-30 06:51] LABS: POTASSIUM 3.7 mmol/L (3.5-5.1)
[2017-04-30 08:00] VITALS: BP 140/63
[2017-04-30 12:00] VITALS: BP 117/64
[2017-04-30 16:00] VITALS: BP 147/85
[2017-04-30 20:00] VITALS: BP 142/81
[2017-05-01] VITALS: BP 134/76
[2017-05-01 06:01] LABS: ALBUMIN 2.5 gm/dl (3.1-4.5); BUN 22 mg/dl (7-24); CARBON DIOXIDE 40 mmol/L (21-32); CHLORIDE 99 mmol/L (98-107); EST GLOM FILT AFRICAN AMERICAN > 60 ml/min; PHOSPHOROUS 2.5 mg/dL (2.5-4.9); POTASSIUM 3.3 mmol/L (3.5-5.1); SODIUM 144 mmol/L (136-145)
[2017-05-01 06:04] LABS: GLUCOSE 42 mg/dL (65-99)
[2017-05-01 08:00] VITALS: BP 162/86
[2017-05-01 12:00] VITALS: BP 178/86
[2017-05-01 16:00] VITALS: BP 155/75
[2017-05-01 20:00] VITALS: BP 144/95
[2017-05-02] VITALS: BP 137/65
[2017-05-02 06:26] LABS: BASO # 0.1 10*3/uL (0.0-0.1); BASO % 0.4 % (0.0-1.0); EOS # 0.3 10*3/uL (0.0-0.4); EOS % 2.5 % (1.0-4.0); HEMATOCRIT 40.8 % (42.0-52.0); HEMOGLOBIN 12.7 g/dl (14.0-18.0); IG # 0.1 10*3/uL (0.0-0.1); LYMPH # 1.2 10*3/uL (1.3-4.4); LYMPH % 10.3 % (27.0-41.0); MEAN CELL VOLUME 92.5 fl (80.0-94.0); MEAN CORPUSCULAR HGB 28.8 pg (27.0-31.0); MEAN CORPUSCULAR HGB CONC 31.1 g/dl (33.0-37.0); MEAN PLATELET VOLUME 10.5 fl (9.6-12.3); MONO # 1.1 10*3/uL (0.1-1.0); MONO % 9.7 % (3.0-9.0); NEUT # 8.6 10*3/uL (2.3-7.9); NEUT % 76.7 % (47.0-73.0); PLATELET COUNT AUTOMATED 233 10*3/uL (130-400); RED BLOOD COUNT 4.41 10*6/uL (4.50-5.90); RED CELL DISTRI WIDTH 13.6 % (0-14.5); WHITE BLOOD COUNT 11.3 10*3/uL (4.8-10.8)
[2017-05-02 06:56] LABS: ALBUMIN 2.4 gm/dl (3.1-4.5); BUN 23 mg/dl (7-24); CARBON DIOXIDE 39 mmol/L (21-32); CHLORIDE 93 mmol/L (98-107); EST GLOM FILT AFRICAN AMERICAN > 60 ml/min; GLUCOSE 175 mg/dL (65-99); PHOSPHOROUS 2.6 mg/dL (2.5-4.9); POTASSIUM 2.8 mmol/L (3.5-5.1); SODIUM 141 mmol/L (136-145)
[2017-05-02 08:00] VITALS: BP 126/82
[2017-05-02 12:00] VITALS: BP 127/75
[2017-05-02 16:31] VITALS: BP 130/63
[2017-05-02 20:00] VITALS: BP 132/60
[2017-05-03] VITALS: BP 103/63
[2017-05-03 05:54] LABS: BASO # 0.1 10*3/uL (0.0-0.1); BASO % 0.5 % (0.0-1.0); EOS # 0.1 10*3/uL (0.0-0.4); EOS % 1.1 % (1.0-4.0); HEMATOCRIT 42.1 % (42.0-52.0); HEMOGLOBIN 13.3 g/dl (14.0-18.0); IG # 0.1 10*3/uL (0.0-0.1); LYMPH # 1.2 10*3/uL (1.3-4.4); LYMPH % 11.8 % (27.0-41.0); MEAN CELL VOLUME 91.5 fl (80.0-94.0); MEAN CORPUSCULAR HGB 28.9 pg (27.0-31.0); MEAN CORPUSCULAR HGB CONC 31.6 g/dl (33.0-37.0); MEAN PLATELET VOLUME 10.1 fl (9.6-12.3); MONO % 10.2 % (3.0-9.0); NEUT # 7.7 10*3/uL (2.3-7.9); NEUT % 75.9 % (47.0-73.0); PLATELET COUNT AUTOMATED 230 10*3/uL (130-400); RED CELL DISTRI WIDTH 13.8 % (0-14.5); WHITE BLOOD COUNT 10.2 10*3/uL (4.8-10.8)
[2017-05-03 06:20] LABS: ALBUMIN 2.4 gm/dl (3.1-4.5); BUN 20 mg/dl (7-24); CHLORIDE 94 mmol/L (98-107); EST GLOM FILT AFRICAN AMERICAN > 60 ml/min; SGOT/AST 16 IU/L (3-35); SGPT/ALT 21 U/L (12-78); SODIUM 143 mmol/L (136-145)
[2017-05-03 06:23] LABS: ALKALINE PHOSPHATASE 69 U/L (45-117); BILIRUBIN, TOTAL 0.5 mg/dl (0.2-1.0); TOTAL PROTEIN 6.6 gm/dL (6.4-8.2)
[2017-05-03 06:27] LABS: GLUCOSE 48 mg/dL (65-99)
[2017-05-03 06:28] LABS: CARBON DIOXIDE 42 mmol/L (21-32); POTASSIUM 2.3 mmol/L (3.5-5.1)
[2017-05-03 07:49] VITALS: BP 125/86; BP 138/88
[2017-05-03 12:00] VITALS: BP 119/73
[2017-05-03] MEDS ORDERED: LEVAQUIN750 M1 PO (12:26)
[2017-05-03 16:00] VITALS: BP 121/76
[2017-05-03 20:00] VITALS: BP 130/78
[2017-05-04] VITALS: BP 149/82
[2017-05-04 06:38] LABS: BASO # 0.1 10*3/uL (0.0-0.1); BASO % 0.6 % (0.0-1.0); EOS # 0.3 10*3/uL (0.0-0.4); EOS % 2.9 % (1.0-4.0); HEMATOCRIT 40.7 % (42.0-52.0); HEMOGLOBIN 12.7 g/dl (14.0-18.0); LYMPH # 1.1 10*3/uL (1.3-4.4); LYMPH % 10.7 % (27.0-41.0); MEAN CELL VOLUME 92.5 fl (80.0-94.0); MEAN CORPUSCULAR HGB 28.9 pg (27.0-31.0); MEAN CORPUSCULAR HGB CONC 31.2 g/dl (33.0-37.0); MEAN PLATELET VOLUME 9.8 fl (9.6-12.3); MONO # 0.9 10*3/uL (0.1-1.0); MONO % 8.7 % (3.0-9.0); NEUT # 7.6 10*3/uL (2.3-7.9); NEUT % 76.8 % (47.0-73.0); PLATELET COUNT AUTOMATED 218 10*3/uL (130-400); RED CELL DISTRI WIDTH 13.7 % (0-14.5); WHITE BLOOD COUNT 9.8 10*3/uL (4.8-10.8)
[2017-05-04 07:14] LABS: CHLORIDE 97 mmol/L (98-107)
[2017-05-04 07:29] LABS: ALBUMIN 2.5 gm/dl (3.1-4.5); ALKALINE PHOSPHATASE 68 U/L (45-117); BILIRUBIN, TOTAL 0.5 mg/dl (0.2-1.0); BUN 19 mg/dl (7-24); CARBON DIOXIDE 39 mmol/L (21-32); EST GLOM FILT AFRICAN AMERICAN > 60 ml/min; GLUCOSE 193 mg/dL (65-99); SGOT/AST 12 IU/L (3-35); SGPT/ALT 21 U/L (12-78); TOTAL PROTEIN 6.3 gm/dL (6.4-8.2)
[2017-05-04 07:34] LABS: SODIUM 145 mmol/L (136-145)
[2017-05-04 08:00] VITALS: BP 136/82
[2017-05-04 12:00] VITALS: BP 134/78
[2017-05-04 16:00] VITALS: BP 154/72
[2017-05-04 20:00] VITALS: BP 131/83
[2017-05-05] VITALS: BP 122/59
[2017-05-05 06:19] LABS: BUN 19 mg/dl (7-24); CARBON DIOXIDE 36 mmol/L (21-32); CHLORIDE 100 mmol/L (98-107); EST GLOM FILT AFRICAN AMERICAN > 60 ml/min; GLUCOSE 182 mg/dL (65-99)
[2017-05-05 06:41] LABS: SODIUM 140 mmol/L (136-145)
[2017-05-05 06:46] LABS: POTASSIUM 5.6 mmol/L (3.5-5.1)
[2017-05-05 06:51] LABS: VANCOMYCIN TROUGH 23.9 ug/mL (10-20)
[2017-05-05 08:00] VITALS: BP 122/87
[2017-05-05] MEDS ORDERED: LISINOPRIL10 M1 PO (10:45)
[2017-05-05] MEDS ORDERED: METOPROLOL TAR100 M1 PO (10:45)
[2017-05-05 12:00] VITALS: BP 119/68
[2017-05-05 16:00] VITALS: BP 129/79
[2017-05-05 20:00] VITALS: BP 116/53
[2017-05-06] VITALS: BP 122/69
[2017-05-06 07:17] LABS: BUN 22 mg/dl (7-24); CARBON DIOXIDE 39 mmol/L (21-32); CHLORIDE 97 mmol/L (98-107); EST GLOM FILT AFRICAN AMERICAN > 60 ml/min; GLUCOSE 169 mg/dL (65-99)
[2017-05-06 07:25] LABS: SODIUM 143 mmol/L (136-145)
[2017-05-06 07:29] LABS: POTASSIUM 4.4 mmol/L (3.5-5.1)
[2017-05-06 08:00] VITALS: BP 129/72
[2017-05-06 12:00] VITALS: BP 118/95
[2017-05-07] MEDS ORDERED: FUROSEMIDE40 MG PO (16:10)
[2017-05-07] MEDS ORDERED: FLOMAX0.4 MG PO (16:10)
[2017-05-07] MEDS ORDERED: ELIQUIS5 M1 PO (16:10)
== END 2017-05-06 14:38 | disposition home health service (06) | DRG 853 ==
LOC: ED 10:31 → EDHOLD 13:18 → 5E 13:18
PROVIDERS: Emergency Medicine; Internal Medicine; Student in an Organized Health Care Education/Training Program
PROC: 0T9B70Z Drainage of Bladder with Drainage Device, Via Natural or Artificial Opening (ICD-10-PCS; 2017-04-26)
PROC: 0HBLXZZ Excision of Left Lower Leg Skin, External Approach (ICD-10-PCS; principal; 2017-04-27)
PROC: 0HBKXZX Excision of Right Lower Leg Skin, External Approach, Diagnostic (ICD-10-PCS; principal; 2017-04-27)
PROC: 0HBKXZZ Excision of Right Lower Leg Skin, External Approach (ICD-10-PCS; principal; 2017-04-27)
DX: A41.9 Sepsis, unspecified organism (principal); N17.0 Acute kidney failure with tubular necrosis; I21.4 Non-ST elevation (NSTEMI) myocardial infarction; E43 Unspecified severe protein-calorie malnutrition; I50.42 Chronic combined systolic (congestive) and diastolic (congestive) heart failure; I48.2 Chronic atrial fibrillation; E11.51 Type 2 diabetes mellitus with diabetic peripheral angiopathy without gangrene; I13.0 Hypertensive heart and chronic kidney disease with heart failure and stage 1 through stage 4 chronic kidney disease, or unspecified chronic kidney disease; E11.22 Type 2 diabetes mellitus with diabetic chronic kidney disease; L97.829 Non-pressure chronic ulcer of other part of left lower leg with unspecified severity; L97.819 Non-pressure chronic ulcer of other part of right lower leg with unspecified severity; Z66 Do not resuscitate; Z51.5 Encounter for palliative care; R65.20 Severe sepsis without septic shock; R80.9 Proteinuria, unspecified; R31.9 Hematuria, unspecified; E78.5 Hyperlipidemia, unspecified; E55.9 Vitamin D deficiency, unspecified; I25.5 Ischemic cardiomyopathy; E87.6 Hypokalemia; E87.5 Hyperkalemia; E66.9 Obesity, unspecified; Z60.2 Problems related to living alone; I34.0 Nonrheumatic mitral (valve) insufficiency; N18.3 Chronic kidney disease, stage 3 (moderate); B96.1 Klebsiella pneumoniae [K. pneumoniae] as the cause of diseases classified elsewhere; B95.0 Streptococcus, group A, as the cause of diseases classified elsewhere; F32.9 Major depressive disorder, single episode, unspecified; N40.0 Benign prostatic hyperplasia without lower urinary tract symptoms; Z88.8 Allergy status to other drugs, medicaments and biological substances; Z79.4 Long term (current) use of insulin; Z87.891 Personal history of nicotine dependence; Z83.3 Family history of diabetes mellitus; Z82.3 Family history of stroke; Z79.82 Long term (current) use of aspirin; Z79.899 Other long term (current) drug therapy; Z68.34 Body mass index [BMI] 34.0-34.9, adult

== ENCOUNTER 2017-05-20 11:01 | Emergency (ER) | payer OTHER, MEDICARE ==
[~2017-05-20] VITALS: Ht 172.7 cm; Wt 96.6 kg
[~2017-05-20 11:01] MED LIST changes: +ASPIRIN81 M1 PO; +DIGOX0.125 MG PO; +ELIQUIS5 M1 PO; +KLOR-CON 1010 ME1 PO; +LEVAQUIN750 M1 PO; +LIPITOR40 MG PO; +LISINOPRIL10 M1 PO; +LOPRESSOR50 M1 PO; +METOPROLOL TAR100 M1 PO; +NORVASC5 MG PO
== END 2017-05-20 13:46 | disposition left against medical advice (07) ==
LOC: ED 11:01
DX: T83.018A Breakdown (mechanical) of other urinary catheter, initial encounter (principal); I11.0 Hypertensive heart disease with heart failure; I50.9 Heart failure, unspecified; E11.9 Type 2 diabetes mellitus without complications; E78.5 Hyperlipidemia, unspecified; I48.2 Chronic atrial fibrillation; Z87.891 Personal history of nicotine dependence; Z79.899 Other long term (current) drug therapy; Z79.82 Long term (current) use of aspirin; Z79.4 Long term (current) use of insulin

== ENCOUNTER 2017-05-26 10:17 | Inpatient (IN) | payer OTHER, MEDICARE ==
[~2017-05-26] VITALS: Ht 172.7 cm; Wt 95.9 kg
--- NOTE | ~2017-05-26 | PR ---
[place], [place] PROGRESS NOTE NAME: [facility]ALLI CANTU [id number] UNIT #: [id number] ROOM: 521 DOCTOR: COLBY BLANCHARDFEBRUARY BIRTHDATE: [birth year] DOS: 05/28/2017 SUBJECTIVE: The patient is being followed for lower extremity cellulitis. He is currently on Ancef. He had had cultures historically, they grew Klebsiella and strep. He is doing well, tolerating the antibiotics. Denies fever, chills, nausea, vomiting or diarrhea. He had had yesterday documented by Dr. Rosen acute lymphangitis of the right lower extremity with streaking and increased redness and warmth that appears to have improved. He states his legs are about the same. He cannot tell any difference from when he came in. He has been afebrile. LABORATORY DATA: Show WBC 13.5, platelets 246. BUN 55, creatinine 2.95. I did review the chart including the notes from Podiatry. He is to have an MRI done to rule out osteo of his toe. Blood and urine cultures negative. PHYSICAL EXAMINATION: VITAL SIGNS: Show temperature 98.0, pulse 109, respirations 18, BP 122/73. GENERAL: An 81-year-old male in no acute distress. HEENT: Normocephalic, no thrush. LUNGS: Clear to auscultation bilaterally. Respirations even and unlabored. HEART: Regular rhythm. No murmur appreciated. ABDOMEN: Soft, nontender. EXTREMITIES: With edema bilateral lower extremities as well as multiple superficial wounds and abrasion of bilateral great toes with no actual cellulitis of the great toes. No signs of lymphangitis. No odor, no purulent discharge. ASSESSMENT: Cellulitis of the lower extremities. PLAN: Continue Ancef. If he is discharged, he can be changed to Omnicef. We will follow up on the MRI that has been ordered by Podiatry. Ultrasound was negative for DVT and demonstrated diffuse atherosclerosis and inflow stenosis and left anterior tibia was not seen and thought to possibly be occluded. Case discussed with Dr. [place] Amaya. FEBRUARY LO BOWMAN [place], [place] PROGRESS NOTE NAME: CITLALLI CANTU UNIT #: [id number] ROOM: 521 DOCTOR: COLBY BLANCHARD,FEBRUARY BIRTHDATE: [birth year] DAY[place] AMAYA MD CM:KRISH [id number] FEBRUARY COLBY BLANCHARD 05/29/17 0218 interface
--- NOTE | ~2017-05-26 | PR ---
[place], [place] PROGRESS NOTE [id number] UNIT #: [id number] ROOM: 521 DOCTOR: CHARLIE DIETRICH MD BIRTHDATE: [birth year] DOS: SUBJECTIVE: The patient is sitting up in bed, sleepy, but easily arousable. Denies any specific cardiac complaint. He is on nasal oxygen. No chest pain. No chest pressure. No symptomatic palpitation. OBJECTIVE: VITAL SIGNS: Blood pressure 124/86, heart rate 110, respiratory rate of 18, temperature 97.9. NECK: No bruit. HEART: S1, S2, appears to be tachycardic, holosystolic murmur in the left upper sternal border. LUNGS: Significant decrease in air movement, but no cheryl wheezing or rales. ABDOMEN: Morbidly obese, soft, nontender, present bowel sounds, very limited exam. LOWER EXTREMITIES: Both under wrap with evidence of edema. Unable to appreciate distal pulses. DIAGNOSTIC STUDIES: Telemetry, there is long run of VT that was seen yesterday at [address] Pool. LABORATORY DATA: White count 13.5, hemoglobin is 10.1. Potassium 3.6, creatinine 2.95, BUN 55, GFR 21. Hemoglobin A1c is 7.3. Vitamin D is 27. TSH 4.9. ASSESSMENT AND PLAN: 1. Known history of severe ischemic cardiomyopathy, reported ejection fraction of 25% in a patient who came in with decompensated systolic heart failure. 2. Atrial fibrillation with rapid ventricular response. Heart rate continues to be slightly elevated and in view of the patient's history of cardiomyopathy, I will stop the short acting Lopressor and switch to Toprol 75 mg 1 tablet p.o. b.i.d. Hydralazine will be held for now, is to avoid any drop in blood pressure. I will address Imdur further in a.m. pending further blood pressure measurement. 3. Chronic renal failure with GFR of 20%. I will defer volume management and renal function to Nephrology. 4. ____. No current option for Aldactone/Entresto/TYRONE inhibitor at this time. 5. The patient is requesting conservative management. He declined vest and AICD insertion. We will pursue conservative management. Apparently, this was discussed in detail with Dr. Pool. Currently, the patient is aware of the risk including and stroke that comes with that, including . 6. Increase activity, consider physical therapy along with occupational therapy. 7. Cardiac rehab as an outpatient. 8. Congestive heart failure clinic as an outpatient. 9. Early followup with our clinic in [place] within one week from discharge. [place], [place] PROGRESS NOTE NAME: CITLALLI CANTU UNIT #: [id number] ROOM: 521 DOCTOR: CHARLIE DIETRICH MD BIRTHDATE: [birth year] CHARLIE DIETRICH MD CM:KRISH 1030 02 CHARLIE DIETRICH MD 05/28/17 1103 interface
--- NOTE | ~2017-05-26 | PR ---
[place], [place] PROGRESS NOTE NAME: CITLALLI CANTU UNIT #: [id number] ROOM: 521 DOCTOR: CHARLIE DIETRICH MD BIRTHDATE: [birth year] DOS: SUBJECTIVE: The patient has continued to be asymptomatic. Denies any specific cardiac complaint, a slight improvement in shortness of breath. OBJECTIVE: VITAL SIGNS: Blood pressure 110/68, heart rate 96, respiratory rate of 18, temperature 97.8. NECK: Good upstroke, no bruit. HEART: S1, S2 with holosystolic murmur at the left sternal border. CHEST AND BACK: Not examined. LUNGS: Decrease air movement. No cheryl wheezing or rales. ABDOMEN: Soft, nontender, present bowel sounds. EXTREMITIES: Lower extremities, no significant edema. LABORATORY DATA: White count 9.9, hemoglobin 9.4, potassium 3.4 and, creatinine 2.34, BUN 43 compared to 2.95 and 55 from yesterday. GFR 27% compared to yesterday 21%. Vitamin D 27 and folate 4.9. ASSESSMENT AND PLAN: 1. History of severe ischemic cardiomyopathy with ejection fraction reported to be in the 25% range. 2. The patient presenting with AFib and RVR. 3. Improved heart rate after switching from short-acting beta elder to the long acting Toprol. There is no room currently for titrating this beta elder furthermore. The patient will be considered for BINU cardioversion in view of his severe cardiomyopathy. CHARLIE DIETRICH MD CM:PNTRANS [phone] CHARLIE DIETRICH MD 05/29/17 1254 interface
--- NOTE | ~2017-05-26 | PR ---
[place], [place] PROGRESS NOTE NAME: CITLALLI CANTU [facility] #: [id number] UNIT #: [id number] ROOM: 521 DOCTOR: ZANDER QUINONES DPM BIRTHDATE: [birth year] DOS: 05/28/2017 SUBJECTIVE: The patient was seen for followup of venous stasis, venous stasis ulcerations both lower extremities abrasions with ulcerations of both feet. The patient is an 81-year-old white male who has seen last night by my associate, Dr. Ivan. Dr. Ivan had seen the patient and sent and I had seen pictures of the patient's abrasions from yesterday and following up today. The patient is having no acute pain in the legs or feet. OBJECTIVE: The patient has venous stasis both lower extremities with venous stasis ulcerations, which are full thickness. No signs of underlying abscess. Specific attention was paid to the right hallux due to the radiograph report of potential gas in the soft tissue. I reviewed the radiographs myself. Clinically, it does not correlate with any signs of abscess. There is superficial abrasion to the dorsal right hallux medial to the radiographic findings. Upon debridement of the eschar, there is no deep sinus tract, no signs of necrotizing fasciitis. No signs of drainage, no signs of erythema, no signs of abscess that will correlate with gas in the soft tissue. After reviewing the radiographs and clinically reviewing the patient myself, it may be skin line of the hallux, which appears to mimic gas in the soft tissues; however, I will order an MRI just to verify there is no underlying pockets of gas in the soft tissue, but again I see no evidence for the need for acute incision and drainage as it appears only to be a superficial abrasion, which according to the patient occurred when the EMS stepped on his foot while getting him off the floor. There is a superficial serous fluid-filled blister at the dorsal second right toe upon drainage. There is scant amount of serous drainage noted, but no deep sinus tract, appears consistent with a friction blister, which also may been reduced from the localized trauma. The patient's tests that were performed including venous Doppler of bilateral leg showed no evidence of DVT bilateral. The patient's arterial Doppler performed bilateral; however, does reveal right side dampened triphasic biphasic, essentially monophasic wave form, femoral becoming monophasic and superficial femoral and popliteal extending the tibial vessels with progressive dampening. Also left side revealed monophasic waveforms within the common femoral, monophasic wave form superficial femoral to popliteal and tibial vessels, anterior tibial presumed occluded. Again, the patient's radiographs 2 foot views bilateral foot revealed no acute fracture noted. No significant bony destruction noted. Note of possible gas in the soft tissue directly adjacent to the base of the proximal phalanx was noted, but again does not clinically correlate with any signs of infection to the soft tissue. I will order an MRI just to verify. There is no underlying possible early abscess, although clinically it does not appear relevant at this time and I see no need for surgical intervention. ASSESSMENT: Edema, venous insufficiency, venous ulcerations both lower extremities abrasions, diabetic ulcerations, bilateral. PLAN: Evaluation and management and incise the small blister at dorsal second right toe. Ordered Bactroban ointment and gauze dressings to the abrasions and ulcerations. Continue Tubigrip to both lower legs. The patient is not a candidate for Unna boots due to the arterial insufficiency and again will order [place], [place] PROGRESS NOTE NAME: CITLALLI CANTU UNIT #: [id number] ROOM: 521 DOCTOR: ZANDER QUINONES DPM BIRTHDATE: [birth year] the MRI to ascertain and verify if there is no underlying infection of the right hallux, which again clinically does not appear relevant at this time. The patient will be seen in 2 to 3 days for followup unless changes are noted on the MRI, which would substantiate surgical intervention, but again at this point, I do not think that will be needed. Clinically, there is no evidence of underlying abscess infection or anything more than the abrasion overlying the hallux. A vascular consult is definitively recommended due to the arterial findings and the patient will be seen for continued care and followup. ZANDER QUINONES DPM CM:KRISH 1102 1156 ZANDER QUINONES DPM 05/28/17 1156 interface
--- NOTE | ~2017-05-26 | PR ---
[place], [place] PROGRESS NOTE NAME: CITLALLI CANTU [facility] #: [id number] UNIT #: [id number] ROOM: 521 DOCTOR: ZANDER QUINONES DPM BIRTHDATE: [birth year] DOS: 05/31/2017 SUBJECTIVE: The patient was seen for followup of venous stasis ulcerations of both lower extremities, venous insufficiency, bilateral ulceration and abrasion of the dorsal right hallux and dorsal second right toes. The patient did not undergo his MRI yet due to the MRI being broken. Apparently, he will obtain the MRI today. The patient is having no acute pain. OBJECTIVE: The ulcerations are improved from Tuesday. There is venous insufficiency of bilateral lower extremity still at this time. No signs of full thickness breakdown. No signs of abscess. No signs of necrotizing fasciitis. Abrasion dorsal second right toe has resolved. ASSESSMENT: Ulcerations of bilateral lower extremity, venous insufficiency, bilateral. PLAN: Evaluation and management. Continue local wound care. The patient will undergo the MRI apparently later today. We will follow the patient for followup. ZANDER QUINONES DPM CM:KRISH 1219 1251 ZANDER QUINONES DPM 05/31/17 1252 interface
[2017-05-26 10:20] VITALS: BP 154/96
[2017-05-26 10:46] LABS: HEMATOCRIT 35.8 % (42.0-52.0); HEMOGLOBIN 11.3 g/dl (14.0-18.0); MEAN CELL VOLUME 88.6 fl (80.0-94.0); MEAN CORPUSCULAR HGB CONC 31.6 g/dl (33.0-37.0); MEAN PLATELET VOLUME 9.7 fl (9.6-12.3); PLATELET COUNT AUTOMATED 260 10*3/uL (130-400); RED BLOOD COUNT 4.04 10*6/uL (4.50-5.90); RED CELL DISTRI WIDTH 14.3 % (0-14.5); WHITE BLOOD COUNT 20.2 10*3/uL (4.8-10.8)
[2017-05-26 11:00] VITALS: BP 144/78
[2017-05-26 11:04] LABS: ALBUMIN 2.3 gm/dl (3.1-4.5); ALKALINE PHOSPHATASE 89 U/L (45-117); BILIRUBIN, TOTAL 0.5 mg/dl (0.2-1.0); BUN 72 mg/dl (7-24); CARBON DIOXIDE 24 mmol/L (21-32); CHLORIDE 106 mmol/L (98-107); EST GLOM FILT AFRICAN AMERICAN 16 ml/min; GLUCOSE 167 mg/dL (65-99); POTASSIUM 5.6 mmol/L (3.5-5.1); SGOT/AST 17 IU/L (3-35); SGPT/ALT 20 U/L (12-78); SODIUM 140 mmol/L (136-145); TOTAL PROTEIN 7.7 gm/dL (6.4-8.2)
[2017-05-26 11:05] LABS: TROPONIN I < 0.015 ng/ml (<0.045)
[2017-05-26 11:05] LABS: BASOPHIL # 0.2 10*3/uL (0-0.1); BASOPHILS 1 % (0-1); LYMPHOCYTE # 0.4 10*3/uL (1.3-4.4); MONOCYTE # 1.8 10*3/uL (0.1-1.0); NEUTROPHIL # 17.8 10*3/uL (2.3-7.9); NEUTROPHILS 88 % (47-73); PLATELET SUFFICIENCY NORMAL (NORMAL); TOTAL CELLS COUNTED 100 #CELLS
[2017-05-26 11:30] VITALS: BP 152/65
[2017-05-26 12:00] VITALS: BP 131/74; BP 136/76
[2017-05-26] MEDS ORDERED: LISINOPRIL40 MG PO (13:57)
[2017-05-26] MEDS ORDERED: LOPRESSOR50 M1 PO (13:58)
[2017-05-26] MEDS ORDERED: NORVASC5 MG PO (14:00)
[2017-05-26 16:00] VITALS: BP 131/74
[2017-05-26 20:00] VITALS: BP 132/86
[2017-05-26 21:07] LABS: BILIRUBIN NEGATIVE (NEGATIVE); BLOOD 3+ (NEGATIVE); CLARITY SL CLOUDY (CLEAR); COLOR YELLOW (YELLOW); GLUCOSE NEGATIVE (NEGATIVE); KETONE NEGATIVE (NEGATIVE); LEUKO ESTERASE 1+ (NEGATIVE); NITRITE NEGATIVE (NEGATIVE); PROTEIN 1+ (NEGATIVE); UROBILINOGEN 0.2 E.U./dl (0.2-1.0)
[2017-05-26 21:13] LABS: RBC TNTC rbc/hpf (0-2); URINE REFLEX COMMENT YES (NO)
[2017-05-27] VITALS: BP 130/88
[2017-05-27 07:00] LABS: BASO % 0.1 % (0.0-1.0); EOS # 0.1 10*3/uL (0.0-0.4); EOS % 0.5 % (1.0-4.0); HEMATOCRIT 34.9 % (42.0-52.0); HEMOGLOBIN 10.6 g/dl (14.0-18.0); IG # 0.1 10*3/uL (0.0-0.1); LYMPH % 5.5 % (27.0-41.0); MEAN CORPUSCULAR HGB 28.1 pg (27.0-31.0); MEAN CORPUSCULAR HGB CONC 30.4 g/dl (33.0-37.0); MEAN PLATELET VOLUME 10.2 fl (9.6-12.3); MONO # 1.1 10*3/uL (0.1-1.0); MONO % 6.3 % (3.0-9.0); NEUT # 15.4 10*3/uL (2.3-7.9); PLATELET COUNT AUTOMATED 253 10*3/uL (130-400); RED BLOOD COUNT 3.77 10*6/uL (4.50-5.90); RED CELL DISTRI WIDTH 14.5 % (0-14.5); WHITE BLOOD COUNT 17.7 10*3/uL (4.8-10.8)
[2017-05-27 07:03] LABS: MEAN CELL VOLUME 92.6 fl (80.0-94.0)
[2017-05-27 07:26] LABS: ALBUMIN 2.1 gm/dl (3.1-4.5); BILIRUBIN, TOTAL 0.4 mg/dl (0.2-1.0); MAGNESIUM 2.5 mg/dL (1.5-2.1)
[2017-05-27 07:28] LABS: INTERNATIONAL NORM RATIO 1.1 (2.0-3.5); PROTHROMBIN TIME 12.2 SECONDS (9.0-12.4)
[2017-05-27 07:31] LABS: HEMOGLOBIN A1c 7.3 % (4.8-5.6)
[2017-05-27 07:38] LABS: DIGOXIN 0.44 ng/ml (0.8-2.0); FREE T4 0.85 ng/dl (0.76-1.46); TOTAL PROTEIN 6.8 gm/dL (6.4-8.2)
[2017-05-27 07:47] LABS: POTASSIUM 4.2 mmol/L (3.5-5.1); THYROID STIM HORMONE (HS) 4.57 uIU/ml (0.358-4.75)
[2017-05-27 08:00] VITALS: BP 110/66
[2017-05-27 08:03] LABS: VITAMIN D, 25-HYDROXY 27.7 ng/mL (30-100)
[2017-05-27 08:04] LABS: FOLIC ACID 4.94 ng/mL (>5.38)
[2017-05-27 12:00] VITALS: BP 139/91
[2017-05-27 16:00] VITALS: BP 115/62
[2017-05-27 21:00] VITALS: BP 131/66
[2017-05-28] VITALS: BP 127/88
[2017-05-28 06:47] LABS: BASO % 0.2 % (0.0-1.0); EOS # 0.4 10*3/uL (0.0-0.4); EOS % 3.3 % (1.0-4.0); HEMATOCRIT 34.3 % (42.0-52.0); HEMOGLOBIN 10.1 g/dl (14.0-18.0); IG # 0.1 10*3/uL (0.0-0.1); LYMPH # 1.3 10*3/uL (1.3-4.4); LYMPH % 9.4 % (27.0-41.0); MEAN CELL VOLUME 92.7 fl (80.0-94.0); MEAN CORPUSCULAR HGB 27.3 pg (27.0-31.0); MEAN CORPUSCULAR HGB CONC 29.4 g/dl (33.0-37.0); MEAN PLATELET VOLUME 9.9 fl (9.6-12.3); MONO % 7.6 % (3.0-9.0); NEUT # 10.7 10*3/uL (2.3-7.9); PLATELET COUNT AUTOMATED 246 10*3/uL (130-400); RED CELL DISTRI WIDTH 14.4 % (0-14.5); WHITE BLOOD COUNT 13.5 10*3/uL (4.8-10.8)
[2017-05-28 07:22] LABS: MAGNESIUM 2.2 mg/dL (1.5-2.1); PHOSPHOROUS 4.9 mg/dL (2.5-4.9); POTASSIUM 3.6 mmol/L (3.5-5.1)
[2017-05-28 07:27] LABS: INTERNATIONAL NORM RATIO 1.2 (2.0-3.5); PROTHROMBIN TIME 12.3 SECONDS (9.0-12.4)
[2017-05-28 07:32] LABS: DIGOXIN 0.33 ng/ml (0.8-2.0)
[2017-05-28 08:00] VITALS: BP 124/86
[2017-05-28 12:00] VITALS: BP 127/76
[2017-05-28 16:00] VITALS: BP 122/73
[2017-05-28 20:00] VITALS: BP 122/73
[2017-05-29] VITALS: BP 117/73; BP 125/75
[2017-05-29 04:00] VITALS: BP 120/78
[2017-05-29 06:34] LABS: BASO % 0.3 % (0.0-1.0); EOS # 0.4 10*3/uL (0.0-0.4); EOS % 4.4 % (1.0-4.0); HEMATOCRIT 31.3 % (42.0-52.0); HEMOGLOBIN 9.4 g/dl (14.0-18.0); IG # 0.1 10*3/uL (0.0-0.1); LYMPH # 0.9 10*3/uL (1.3-4.4); LYMPH % 9.3 % (27.0-41.0); MEAN CELL VOLUME 92.6 fl (80.0-94.0); MEAN CORPUSCULAR HGB 27.8 pg (27.0-31.0); MEAN PLATELET VOLUME 9.6 fl (9.6-12.3); MONO # 0.7 10*3/uL (0.1-1.0); MONO % 7.2 % (3.0-9.0); NEUT # 7.7 10*3/uL (2.3-7.9); NEUT % 78.3 % (47.0-73.0); PLATELET COUNT AUTOMATED 224 10*3/uL (130-400); RED BLOOD COUNT 3.38 10*6/uL (4.50-5.90); RED CELL DISTRI WIDTH 14.4 % (0-14.5); WHITE BLOOD COUNT 9.9 10*3/uL (4.8-10.8)
[2017-05-29 06:58] LABS: POTASSIUM 3.4 mmol/L (3.5-5.1)
[2017-05-29 08:00] VITALS: BP 122/70
[2017-05-29 12:00] VITALS: BP 110/68
[2017-05-29 16:00] VITALS: BP 108/72
[2017-05-29 20:00] VITALS: BP 101/56
[2017-05-30] VITALS: BP 115/59
[2017-05-30 05:59] VITALS: BP 102/54
[2017-05-30 06:07] LABS: BASO % 0.3 % (0.0-1.0); EOS # 0.3 10*3/uL (0.0-0.4); EOS % 3.6 % (1.0-4.0); HEMATOCRIT 31.9 % (42.0-52.0); HEMOGLOBIN 9.5 g/dl (14.0-18.0); LYMPH % 10.6 % (27.0-41.0); MEAN CELL VOLUME 92.7 fl (80.0-94.0); MEAN CORPUSCULAR HGB 27.6 pg (27.0-31.0); MEAN CORPUSCULAR HGB CONC 29.8 g/dl (33.0-37.0); MEAN PLATELET VOLUME 10.1 fl (9.6-12.3); MONO # 0.8 10*3/uL (0.1-1.0); NEUT # 7.3 10*3/uL (2.3-7.9); NEUT % 77.2 % (47.0-73.0); PLATELET COUNT AUTOMATED 241 10*3/uL (130-400); RED BLOOD COUNT 3.44 10*6/uL (4.50-5.90); RED CELL DISTRI WIDTH 14.3 % (0-14.5); WHITE BLOOD COUNT 9.5 10*3/uL (4.8-10.8)
[2017-05-30 06:26] LABS: ALBUMIN 1.8 gm/dl (3.1-4.5); MAGNESIUM 1.5 mg/dL (1.5-2.1); PHOSPHOROUS 3.2 mg/dL (2.5-4.9); POTASSIUM 3.2 mmol/L (3.5-5.1)
[2017-05-30 08:00] VITALS: BP 114/62
[2017-05-30 12:00] VITALS: BP 118/66; BP 131/71
[2017-05-30 16:00] VITALS: BP 110/74
[2017-05-30 20:00] VITALS: BP 137/87
[2017-05-31] VITALS: BP 140/79
[2017-05-31 06:28] LABS: MAGNESIUM 1.6 mg/dL (1.5-2.1); PHOSPHOROUS 2.7 mg/dL (2.5-4.9); POTASSIUM 3.1 mmol/L (3.5-5.1)
[2017-05-31 06:32] LABS: BASO % 0.3 % (0.0-1.0); EOS # 0.3 10*3/uL (0.0-0.4); EOS % 2.7 % (1.0-4.0); HEMATOCRIT 31.7 % (42.0-52.0); HEMOGLOBIN 9.5 g/dl (14.0-18.0); LYMPH # 1.2 10*3/uL (1.3-4.4); LYMPH % 10.9 % (27.0-41.0); MEAN CELL VOLUME 91.9 fl (80.0-94.0); MEAN CORPUSCULAR HGB 27.5 pg (27.0-31.0); MONO # 0.9 10*3/uL (0.1-1.0); MONO % 8.4 % (3.0-9.0); NEUT # 8.3 10*3/uL (2.3-7.9); NEUT % 77.3 % (47.0-73.0); PLATELET COUNT AUTOMATED 242 10*3/uL (130-400); RED BLOOD COUNT 3.45 10*6/uL (4.50-5.90); RED CELL DISTRI WIDTH 14.3 % (0-14.5); WHITE BLOOD COUNT 10.7 10*3/uL (4.8-10.8)
[2017-05-31 08:00] VITALS: BP 112/66
[2017-05-31 12:00] VITALS: BP 130/60
[2017-05-31 16:00] VITALS: BP 128/77
[2017-05-31 20:00] VITALS: BP 121/69
[2017-06-01] VITALS: BP 117/66
[2017-06-01 05:58] LABS: BASO % 0.3 % (0.0-1.0); EOS # 0.2 10*3/uL (0.0-0.4); EOS % 2.1 % (1.0-4.0); HEMATOCRIT 32.4 % (42.0-52.0); HEMOGLOBIN 9.7 g/dl (14.0-18.0); IG # 0.1 10*3/uL (0.0-0.1); LYMPH # 1.1 10*3/uL (1.3-4.4); LYMPH % 10.2 % (27.0-41.0); MEAN CELL VOLUME 93.6 fl (80.0-94.0); MEAN CORPUSCULAR HGB CONC 29.9 g/dl (33.0-37.0); MEAN PLATELET VOLUME 9.7 fl (9.6-12.3); MONO # 0.8 10*3/uL (0.1-1.0); MONO % 7.2 % (3.0-9.0); NEUT # 8.8 10*3/uL (2.3-7.9); NEUT % 79.7 % (47.0-73.0); PLATELET COUNT AUTOMATED 238 10*3/uL (130-400); RED BLOOD COUNT 3.46 10*6/uL (4.50-5.90); RED CELL DISTRI WIDTH 14.1 % (0-14.5); WHITE BLOOD COUNT 11.1 10*3/uL (4.8-10.8)
[2017-06-01 06:28] LABS: ALBUMIN 2.1 gm/dl (3.1-4.5); MAGNESIUM 1.7 mg/dL (1.5-2.1); PHOSPHOROUS 2.5 mg/dL (2.5-4.9); POTASSIUM 3.2 mmol/L (3.5-5.1)
[2017-06-01 08:00] VITALS: BP 120/68
[2017-06-01 13:00] VITALS: BP 151/85
[2017-06-01] MEDS ORDERED: NATURE'S BLEND F1 MG PO (15:05)
[2017-06-01] MEDS ORDERED: D-1000 185 MG-11 TAB PO (15:05)
[2017-06-01] MEDS ORDERED: CALCIUM CARBON500 M1 PO (15:05)
[2017-06-01] MEDS ORDERED: OMNICEF300 MG PO (15:06)
[2017-06-01 16:00] VITALS: BP 144/90
== END 2017-06-01 16:47 | disposition other institution (70) | DRG 871 ==
LOC: ED 10:17 → 5E 11:21 → EDHOLD 11:21 → 5E 11:37
PROVIDERS: Emergency Medicine; Family Medicine; Hospitalist; Internal Medicine; Internal Medicine Nephrology
DX: A41.9 Sepsis, unspecified organism (principal); E43 Unspecified severe protein-calorie malnutrition; N17.0 Acute kidney failure with tubular necrosis; I50.43 Acute on chronic combined systolic (congestive) and diastolic (congestive) heart failure; E87.0 Hyperosmolality and hypernatremia; M62.82 Rhabdomyolysis; I48.2 Chronic atrial fibrillation; E83.51 Hypocalcemia; E11.22 Type 2 diabetes mellitus with diabetic chronic kidney disease; L03.115 Cellulitis of right lower limb; L03.116 Cellulitis of left lower limb; I13.0 Hypertensive heart and chronic kidney disease with heart failure and stage 1 through stage 4 chronic kidney disease, or unspecified chronic kidney disease; I34.0 Nonrheumatic mitral (valve) insufficiency; R65.20 Severe sepsis without septic shock; N18.3 Chronic kidney disease, stage 3 (moderate); E53.8 Deficiency of other specified B group vitamins; R31.9 Hematuria, unspecified; E87.6 Hypokalemia; W18.30XA Fall on same level, unspecified, initial encounter; E66.09 Other obesity due to excess calories; E87.5 Hyperkalemia; E78.5 Hyperlipidemia, unspecified; I87.2 Venous insufficiency (chronic) (peripheral); E11.622 Type 2 diabetes mellitus with other skin ulcer; L98.499 Non-pressure chronic ulcer of skin of other sites with unspecified severity; T14.90 Injury, unspecified; R31.0 Gross hematuria; I25.5 Ischemic cardiomyopathy; Y93.89 Activity, other specified; Y92.89 Other specified places as the place of occurrence of the external cause; Y99.8 Other external cause status; Z87.891 Personal history of nicotine dependence; Z83.3 Family history of diabetes mellitus; Z79.82 Long term (current) use of aspirin; Z79.4 Long term (current) use of insulin; Z79.899 Other long term (current) drug therapy; Z68.32 Body mass index [BMI] 32.0-32.9, adult

== ENCOUNTER 2017-06-06 16:08 | Inpatient (IN) | payer MEDICARE, OTHER ==
[~2017-06-06] VITALS: Ht 172.7 cm; Wt 98.4 kg
--- NOTE | ~2017-06-06 | PR ---
[place], [place] PROGRESS NOTE NAME: CITLALLI CANTU UNIT #: [id number] ROOM: 526 DOCTOR: MARK RAMIREZ MD,JAYLON BIRTHDATE: [birth year] DOS: 06/15/2017 SUBJECTIVE: He has been noted fully awake and alert. He has not been noting symptoms of chest pain, coughing. The patient has been subsiding. There were no symptoms of abdominal pain. OBJECTIVE: VITAL SIGNS: Showed normal temperature, respiratory rate 20, heart rate 114 to 98, blood pressure to 140/100 to 102/56. Pulse oxygen saturation of the patient noted on 2 liters cannula 98% saturation. HEENT: Showed no acute change. NECK: Supple. CARDIOVASCULAR: S1, S2 audible. LUNGS: The patient was noted without any wheezing or crackles at this time. ABDOMEN: Soft, obese, nontender. EXTREMITIES: Chronic venous stasis pigmentation changes. LABORATORY DATA: BMP of the labs today showed BUN 47, creatinine 1.66. IMPRESSION: 1. Bilateral pleural fluid with mild acute kidney injury. 2. Acute congestive heart failure. 3. Acute exacerbation of chronic obstructive pulmonary disease and bronchitis. PLAN OF MANAGEMENT: No changes in the medical management. Plan for this patient at this time will be needed. All other supportive therapy plan to be continued as previously. Usual care, other supportive plan of management. Addition of changes in treatment could be done based on progression of illness. The patient is ready for discharge to the long-term facility whenever desired from the pulmonary standpoint. JAYLON FLORES MD CM:PNTRANS 1013 1026 JAYLON RAMIREZ MD 06/15/17 1026 interface
--- NOTE | ~2017-06-06 | PR ---
[place], [place] PROGRESS NOTE NAME: CITLALLI CANTU UNIT #: [id number] ROOM: 526 DOCTOR: MARK RAMIREZ MD,JAYLON BIRTHDATE: [birth year] DOS: 06/14/2017 SUBJECTIVE: He has been currently comfortably resting in the bed was noted with hypoglycemia, which has been treated at the present time. The patient has been noted without any acute distress. Use the BiPAP few hours at night. OBJECTIVE: VITAL SIGNS: Normal temperature, respiratory rate 22, heart rate 115, blood pressure 124/70. Pulse oxygen saturation on 3 liters nasal cannula 97% saturation. HEENT: Examination shows no acute change. NECK: Supple. CARDIOVASCULAR: S1, S2 audible. LUNGS: The patient was noted with scattered crackles, no wheezing, no crackles. ABDOMEN: Soft, nontender. IMPRESSION: 1. The patient with bilateral pleural fluid, acute congestive heart failure as well as acute exacerbation of chronic obstructive pulmonary disease resolving. 2. Hypoglycemia, which has been treated at the present time. PLAN OF MANAGEMENT: Continue current therapy, plan and management as in progress. Might be hypoglycemic. Continue current dose of steroid. Continue use of BiPAP and other medical plan of management. JAYLON FLORES MD CM:PNTRANS 1110 1124 JAYLON RAMIREZ MD 06/14/17 1124 interface
--- NOTE | ~2017-06-06 | CON ---
[place], [place] REPORT OF CONSULTATION NAME: CITLALLI CANTU [facility] #: [id number] UNIT #: [id number] ROOM: 507 DOCTOR: ZANDER QUINONES DPM BIRTHDATE: [birth year] DOS: 06/07/2017 HISTORY OF PRESENT ILLNESS: The patient was seen last week for ulcerations of both lower extremities and was readmitted with shortness of breath. PAST MEDICAL HISTORY: The patient has a past medical history of CHF, chronic AFib, fall deficiency, history of ischemic cardiomyopathy, hyperlipidemia, insulin-dependent diabetes, obesity, rhabdomyolysis, severe protein calorie malnutrition, stasis dermatitis of both lower legs. vitamin D deficiency. PAST SURGICAL HISTORY: None. SOCIAL HISTORY: Ex-cigarette smoker, , quit 30 years ago. FAMILY HISTORY: Mother diabetes, at age 86. Father age 89, cerebral hemorrhage. PHYSICAL EXAMINATION: EXTREMITIES: Lower extremity examination: Pedal pulses diminished bilateral, mild edema bilateral lower legs. Venous ulcerations, anterior aspect, bilateral lower leg are partial thickness, much improved from previous exam last week. No signs of acute infection or cellulitis. ASSESSMENT: Venous insufficiency, venous stasis ulcerations, venous stasis dermatitis, bilateral lower legs. PLAN: Evaluation and management. Ordered Bactroban and Telfa to the ulcerations, anterior bilateral lower leg and had to be applied daily and covered with Tubigrip. The patient will be seen for followup. ZANDER QUINONES DPM CM:CONSTR:REPORT OF CONSULTATION 1243 06/07/17 1542 interface
--- NOTE | ~2017-06-06 | PR ---
[place], [place] PROGRESS NOTE NAME: CITLALLI CANTU UNIT #: [id number] ROOM: 507 DOCTOR: JAYLON CENTENO MD BIRTHDATE: [birth year] DOS: 06/10/2017 SUBJECTIVE: He had been comfortably sitting on the chair at this time. The patient has been ordered the BiPAP for the medical management of hypercapnic hypoxic congestive heart failure. He has not used much of the BiPAP. The patient denies symptoms of chest pain. Coughing seems to be decreased. OBJECTIVE: VITAL SIGNS: Normal temperature, respiratory rate 20, heart rate 102, blood pressure 136/80. Intake was recorded as 1100, output 2400 mL, with positive fluid balance 1.2 liters approximately. Pulse ox saturation on 2 liters nasal cannula 94% saturation. HEENT: No acute change. Moderate obesity. NECK: Supple. CARDIOVASCULAR: S1, S2 is audible. LUNGS: The patient was noted without any wheeze or crackles at the present time. ABDOMEN: Soft, obese, nontender. EXTREMITIES: Shows chronic venous stasis changes. LABORATORY DATA: CBC today: WBC count 11.6, hemoglobin 8.9, hematocrit 28.9, platelet count was normal, 95% segmented neutrophils. BMP: BUN 40, creatinine 1.35. Glucose elevated at 198. Potassium 3.3, CO2 of 37. Arterial blood gas yesterday pH of 7.44, pCO2 of 50, pO2 66.7. IMPRESSION: Acute congestive heart failure, tracheobronchitis in secretion in the airways, bilateral small pleural fluid, not amenable for thoracentesis with history of congestive heart failure with systolic dysfunction. PLAN OF TREATMENT: Continue current conservative treatment at this time without any changes. Continuation of other supportive therapy, plan of management. Usual care. Supportive care, other treatment plan of management. Usual medical management. [place], [place] PROGRESS NOTE NAME: CITLALLI CANTU UNIT #: [id number] ROOM: 507 DOCTOR: JAYLON CENTENO MD BIRTHDATE: [birth year] JAYLON FLORES MD CM:PNTRANS 1606 1628 JAYLON RAMIREZ MD 06/10/17 1628 interface
--- NOTE | ~2017-06-06 | PR ---
[place], [place] PROGRESS NOTE [facility]: [id number] UNIT #: [id number] ROOM: 526 DOCTOR: MARK RAMIREZ MD,JAYLON BIRTHDATE: [birth year] DOS: 06/11/2017 PULMONARY PROGRESS NOTE SUBJECTIVE: He has been noted comfortable at this time. Coughing has been noted by the patient intermittently and does not expect much sputum. Denies symptoms of chest pain. He had been sitting on the chair this morning. OBJECTIVE: VITAL SIGNS: Normal temperature, respiratory rate 24, heart rate 112, blood pressure 133/66. Intake 460 mL, output 1900 mL. Pulse oxygen saturation on 2 liters nasal cannula 95% saturation. HEENT: Examination shows no acute change. NECK: Supple and obese. CARDIOVASCULAR: S1, S2 audible. LUNGS: Noted with moderate reduction of the breath sounds without any wheeze or crackles. ABDOMEN: Soft, obese and nontender. LABORATORY DATA: CBC today, hemoglobin 8.8, hematocrit 28.2, WBC count and platelet count were normal. BMP of the patient today, BUN 46, creatinine 1.43. Glucose 242. The CO2 was 39. IMPRESSION: The patient with congestive heart failure, bilateral pleural fluid with area of compression atelectasis, acute tracheobronchitis and anemia. PLAN OF MANAGEMENT: No changes in the plan for this patient at this time. From the pulmonary standpoint, continue the patient on current therapy, plan of care as previously. Usual care, other supportive therapy and management. JAYLON FLORES MD CM:PNTRANS 1426 0414 JAYLON RAMIREZ MD 06/13/17 0414 interface
--- NOTE | ~2017-06-06 | PR ---
[place], [place] PROGRESS NOTE NAME: CITLALLI CANTU UNIT #: [id number] ROOM: 526 DOCTOR: MARK RAMIREZ MD,JAYLON BIRTHDATE: [birth year] DOS: 06/12/2017 SUBJECTIVE: The patient has been noted without any acute distress at this time. The patient denies symptoms of chest pain. The coughing has been improving. Shortness of breath was resolving. OBJECTIVE: VITAL SIGNS: Normal temperature, respiratory rate 20, heart rate 95, blood pressure 120/56 this morning. Pulse oxygen saturation noted on 2 liters nasal cannula 96% saturation. HEENT: Examination shows no acute change. NECK: Supple. CARDIOVASCULAR: S1, S2 audible. LUNGS: Noted without any wheezing or crackles at the present time. ABDOMEN: Soft, nontender and obese. LABORATORY DATA: BMP today, BUN 42, creatinine 1.38. Carbon dioxide 40. CBC this morning, hemoglobin 8.8, hematocrit 28.2; remaining CBC was normal. IMPRESSION: 1. Bilateral pleural fluid. 1. Acute exacerbation of chronic obstructive pulmonary disease. 2. Azotemia. 3. Chronic obesity. PLAN OF TREATMENT: Solu-Medrol dose will be decreased to 40 mg daily from today. Continuation of the treatment therapy, plan and management. Supportive plan of care. Monitor electrolytes with the diuretics and other intervention. Supportive care. Further treatment changes will be done based on progression of the illness. JAYLON FLORES MD CM:PNTRANS 1351 0507 JAYLON RAMIREZ MD 06/13/17 0507 interface
--- NOTE | ~2017-06-06 | PR ---
[place], [place] PROGRESS NOTE NAME: [facility]I [facility]ANTU [facility] [id number] UNIT #: [id number] ROOM: 526 DOCTOR: MARK RAMIREZ MD,JAYLON BIRTHDATE: [birth year] DOS: 06/13/2017 SUBJECTIVE: He has been noted comfortable at this time, has not used the BiPAP this morning, resting comfortably in the bed, using only the oxygen supplementation. The patient was also noted to have hypoglycemia this morning, which has been treated with glucose supplementation. OBJECTIVE: VITAL SIGNS: Normal temperature, respiratory rate 18, heart rate 52, blood pressure of 138/73 this morning. The pulse oxygen saturation on 2 liters nasal cannula 95% saturation. HEENT: Shows moderate obesity. NECK: Supple. CARDIOVASCULAR: S1, S2 is audible. LUNGS: The patient was noted without any wheezing or crackles at this time. ABDOMEN: Soft, nontender. IMPRESSION: The patient with acute respiratory failure with acute congestive heart failure and exacerbation of chronic obstructive pulmonary disease and bronchitis. PLAN OF TREATMENT: No changes in the plan for this patient from the pulmonary standpoint. Continue current therapy as previously. Usual care, other supportive, plan and management and other treatment. Usual care. JAYLON FLORES MD CM:JUANATRANS 1006 1217 JAYLON RAMIREZ MD 06/13/17 1218 interface
--- NOTE | ~2017-06-06 | PR ---
[place], [place] PROGRESS NOTE NAME: CITLALLI CANTU [facility] #: [id number] UNIT #: [id number] ROOM: 526 DOCTOR: JACKIE CALLE DPM BIRTHDATE: [birth year] DOS: 06/13/2017 SUBJECTIVE: The patient was seen for followup of chronic ulcerations both lower extremities, chronic swelling. He states his legs are feeling good. No complaints. OBJECTIVE: LOWER EXTREMITIES: Pedal pulses are decreased bilaterally. There is some mild low grade edema noted both lower extremities, previous ulcerations on the anterior aspect of the lower legs are healing well without any drainage, malodor, or erythema. No signs of acute infection or cellulitis. ASSESSMENT: Chronic venous insufficiency, improving venous leg ulcers, chronic venous stasis dermatitis. PLAN: Continue Bactroban, Telfa and Tubigrip. Encourage him to elevate his legs whenever possible. The patient is doing well from our standpoint, follow up later in the week if he is still here. If not, we could see him as an outpatient. Wounds are healing and stable on both legs. JACKIE CALLE DPM CM:KRISH [phone] JACKIE CALLE DPM 06/13/171953 interface
--- NOTE | ~2017-06-06 | CON ---
[place], [place] REPORT OF CONSULTATION NAME: CITLALLI CANTU [place] CLINICT #: [id number] UNIT #: [id number] ROOM: 507 DOCTOR: JAYLON CENTENO MD BIRTHDATE: [birth year] DOS: 06/09/2017 PULMONARY CONSULTATION EVALUATION CONSULTATION REQUESTED BY: Hospitalist services. REASON FOR CONSULTATION: To assess the patient for ongoing acute respiratory complaints. HISTORY OF PRESENT ILLNESS: This is an 81-year-old white male, who has been admitted under hospitalist services on 06/06/2017. He was brought into the hospital from the nursing facility. The patient described with decreased oxygen saturation, where the oxygen saturation of the patient was recorded at 88%. The patient was started on oxygen supplementation with the nasal cannula. He was noted with symptoms of shortness of breath as the patient lay down flat. He has been noted with symptoms of coughing. The patient has chest congestion intermittently. Denies any acute shortness breath or chest pain. The patient has been currently sitting on the chair, eating his food and denies any new acute complaints. PAST MEDICAL HISTORY: The patient noted with previous hospitalization in this hospital and discharged from the hospital to [facility] facility after medical management of cellulitis, atrial fibrillation, rapid ventricular response, and other medical problems. REVIEW OF SYSTEMS: Limited. The patient appeared to be a very poor historian. CONSTITUTIONAL: She denies symptoms of fevers, chills or fatigue. EYES: Denies any burning, redness, or tenderness. EAR, NOSE, THROAT SYMPTOMS: Denies sore throat, hoarseness, otalgia, postnasal drainage. CARDIOVASCULAR: Denies anginal pain, edema or pain of the lower extremities. GASTROINTESTINAL: Denies symptoms of dysphagia, nausea, vomiting, diarrhea, abdominal pain, hematemesis, melena. GENITOURINARY: Denies dysuria, suprapubic pain, hematuria. MUSCULOSKELETAL: Denies acute joint pain, redness, or tenderness. SKIN: Chronic venous stasis pigmentation changes of the lower extremities without any lesions, rashes or ulcerations. CENTRAL NERVOUS SYSTEM: Denies dizziness, headache, diplopia or syncopal episodes. Remaining systems were reviewed and they were noted all negative. PAST MEDICAL HISTORY: 1. History of congestive heart failure with ischemic cardiomyopathy, left ventricular ejection fraction noted on 50% with a history of chronic systolic dysfunction. 2. Atrial fibrillation. 3. Folate deficiency. 4. Moderate obesity. 5. Hyperlipidemia. [place], [place] REPORT OF CONSULTATION NAME: CITLALLI CANTU [place] CLINICT #: [id number] UNIT #: [id number] ROOM: 507 DOCTOR: JAYLON CENTENO MD BIRTHDATE: [birth year] 6. Type 2 diabetes mellitus. 7. Chronic stasis dermatitis of the lower extremities. 8. History of rhabdomyolysis. 9. Type 2 diabetes mellitus. 10. History of vitamin D deficiency. SOCIAL HISTORY: The patient stated that he is , has 2 children. Smoking was started by this patient as a teenager up to 3 packs of cigarettes per day that was discontinued 32 years ago. He has worked in the [employer] for 46 years. Denies any history of alcohol use or any history of illicit drug use. FAMILY HISTORY: Mother at the age of 8686 years old from complications of diabetes mellitus. Father at age 5959 years old, complication related to cerebral hemorrhage. HOME MEDICATIONS: The patient noted as Eliquis, aspirin, Lipitor, calcium carbonate, Omnicef, vitamin D, digoxin, folic acid, Lantus insulin, lisinopril, metoprolol tartrate, and Flomax. DRUG ALLERGY HISTORY: The patient was noted as no known drug allergies. PHYSICAL EXAMINATION: GENERAL: This is an 81-year-old male, who has been currently sitting comfortably in the chair without any distress at time of assessment. VITAL SIGNS: Height of 5 feet 8 inches, weight of 220 pounds, BMI 33.4. Normal temperature noted in the last 48 hours, respiratory rate 20-18, heart rate 130-52 with atrial fibrillation, blood pressure 119/73-132/70. Pulse oxygen saturation of the patient recorded on 4 L nasal cannula. The patient has 97% saturation. HEENT: Head was atraumatic. Eyes nonicterus. Moderate obesity. NECK: Supple. Decreased posterior pharyngeal space. CARDIOVASCULAR SYSTEM: S1, S2 audible. LUNGS: Noticed scattered crackles of the lungs without any wheezing. ABDOMEN: Soft, obese, nontender. EXTREMITIES: Shows chronic venous stasis pigmentation. CENTRAL NERVOUS SYSTEM: Cranial nerves 2-12 intact. No focal deficit. MUSCULOSKELETAL: No acute deformities. SKIN: Shows no lesions or rashes. MUSCULOSKELETAL: No deformities. LABORATORY DATA: CBC of the patient on 06/07/2017, hemoglobin 8.7, hematocrit 29.9, WBC count normal, platelet count was normal, 99% segmented neutrophils were noted at that time. CMP of the patient on 06/07/2017, BUN 25, creatinine 1.61, glucose 261. The CMP of the patient that was done on 06/04/2017 was noted with normal BUN and creatinine at that time. Lactic acid on admission 06/06/2017 was normal. PT/PTT of patient on admission was noted as an INR of 1.2, PTT normal. Chest x-ray of the patient 1 view, the patient on 06/06/2017 on admission, was noted with pleural fluid. CT scan of the chest was done for the patient shows evidence of a partially loculated right pleural effusion at the right minor fissure as well as a small to possible medium pleural fluids [place], [place] REPORT OF CONSULTATION NAME: CITLALLI CANTU UNIT #: [id number] ROOM: 507 DOCTOR: JAYLON CENTENO MD BIRTHDATE: [birth year] were noted bilaterally. There was no evidence of acute pulmonary infiltration. The CT scan was done for the patient on 06/08/2017. The images were personally reviewed. CBC this morning, WBC count 13.4, hemoglobin 8.5, hematocrit 27.5, platelet count 270,000, CMP of the patient on 06/09 shows glucose 192, BUN 35, creatinine 1.29, CO2 of 36. Albumin 2.1. IMPRESSION: 1. The patient has been currently admitted to the hospital, noted acute congestive heart failure, systolic dysfunction with small to possibly a medium pleural fluid and chronic hypoxic respiratory failure, possibility of acute hypoxic respiratory failure would be considered secondary uncompensated failure. 2. Acute kidney injury related to the decreased perfusion and congestive heart failure with ischemic cardiomyopathy. 3. History of chronic obesity. 4. Acute exacerbation of chronic obstructive pulmonary disease with some retained secretions in the airways, possibility of acute bronchitis cannot be completely excluded. 5. History of chronic obesity. PLAN OF MANAGEMENT: Use of the bronchodilators to help mobilize secretions. Pleural fluid was noted at this time, small amount amenable for any thoracentesis concentration. Titrate oxygen 92% or greater. Obtain arterial blood gas to assess the ventilatory status: The patient and oxygenation status. Use of the BiPAP if necessary to stabilize the respiratory status. Usual care, other supportive plan of therapy and management. Start the patient on the medications such as the Dulera for patient's long-term management of respiratory disease. Further treatment changes will be advised based on the progression of the illness. The antibiotic, which has been noted broad spectrum at this time, will be discontinued. The patient will be only started on the oral antibiotics with a short spectrum such as doxycycline. The patient was also getting Solu-Medrol for possible exacerbation of chronic obstructive pulmonary disease, which will be changed to 40 mg b.i.d. dosing. Other supportive plan of management to be continued. Monitor chest x-ray, for assessment of pleural fluid, ultrasound assessment will be done. Ordered the sputum for Gram stain and culture as well. JAYLON FLORES MD CM:CONSTR:REPORT OF CONSULTATION [id number] 06/09/17 1921 interface
[~2017-06-06 16:08] MED LIST changes: +CALCIUM CARBON500 M1 PO; +D-1000 185 MG-11 TAB PO; +NATURE'S BLEND F1 MG PO; +OMNICEF300 MG PO
[2017-06-06 16:18] VITALS: BP 148/73
[2017-06-06 16:43] LABS: BASO % 0.4 % (0.0-1.0); EOS # 0.2 10*3/uL (0.0-0.4); EOS % 1.3 % (1.0-4.0); LYMPH # 1.2 10*3/uL (1.3-4.4); LYMPH % 10.3 % (27.0-41.0); MEAN CELL VOLUME 95.4 fl (80.0-94.0); MEAN CORPUSCULAR HGB 27.7 pg (27.0-31.0); MEAN PLATELET VOLUME 10.1 fl (9.6-12.3); MONO # 0.9 10*3/uL (0.1-1.0); MONO % 7.7 % (3.0-9.0); NEUT # 8.9 10*3/uL (2.3-7.9); NEUT % 79.9 % (47.0-73.0); PLATELET COUNT AUTOMATED 286 10*3/uL (130-400); RED BLOOD COUNT 3.25 10*6/uL (4.50-5.90); RED CELL DISTRI WIDTH 14.4 % (0-14.5); WHITE BLOOD COUNT 11.2 10*3/uL (4.8-10.8)
[2017-06-06 16:54] LABS: INTERNATIONAL NORM RATIO 1.2 (2.0-3.5); PROTHROMBIN TIME 12.9 SECONDS (9.0-12.4)
[2017-06-06 17:03] LABS: ALBUMIN 2.2 gm/dl (3.1-4.5); ALKALINE PHOSPHATASE 80 U/L (45-117); BILIRUBIN, TOTAL 0.4 mg/dl (0.2-1.0); BUN 24 mg/dl (7-24); C-REACTIVE PROTEIN 7.55 MG/DL (0-0.3); CARBON DIOXIDE 37 mmol/L (21-32); CHLORIDE 102 mmol/L (98-107); CPK 45 U/L (39-308); EST GLOM FILT AFRICAN AMERICAN 48 ml/min; GLUCOSE 189 mg/dL (65-99); POTASSIUM 4.7 mmol/L (3.5-5.1); SGOT/AST 19 IU/L (3-35); SGPT/ALT 13 U/L (12-78); SODIUM 140 mmol/L (136-145); TOTAL PROTEIN 7.3 gm/dL (6.4-8.2)
[2017-06-06 17:04] LABS: TROPONIN I < 0.015 ng/ml (<0.045)
[2017-06-06 17:05] LABS: CKMB 1.9 ng/ml (0.5-3.6)
[2017-06-06 17:13] LABS: DIGOXIN 0.78 ng/ml (0.8-2.0)
[2017-06-06 19:46] VITALS: BP 148/69
[2017-06-06 20:00] VITALS: BP 132/70
[2017-06-06 20:15] VITALS: BP 132/70
[2017-06-07] VITALS: BP 125/55
[2017-06-07 06:28] LABS: HEMATOCRIT 29.9 % (42.0-52.0); HEMOGLOBIN 8.7 g/dl (14.0-18.0); MEAN CELL VOLUME 93.7 fl (80.0-94.0); MEAN CORPUSCULAR HGB 27.3 pg (27.0-31.0); MEAN CORPUSCULAR HGB CONC 29.1 g/dl (33.0-37.0); MEAN PLATELET VOLUME 10.4 fl (9.6-12.3); PLATELET COUNT AUTOMATED 271 10*3/uL (130-400); RED BLOOD COUNT 3.19 10*6/uL (4.50-5.90); RED CELL DISTRI WIDTH 14.1 % (0-14.5); WHITE BLOOD COUNT 8.6 10*3/uL (4.8-10.8)
[2017-06-07 06:56] LABS: ALBUMIN 2.2 gm/dl (3.1-4.5); MAGNESIUM 1.7 mg/dL (1.5-2.1); POTASSIUM 3.9 mmol/L (3.5-5.1)
[2017-06-07 06:58] LABS: INTERNATIONAL NORM RATIO 1.2 (2.0-3.5); PROTHROMBIN TIME 12.7 SECONDS (9.0-12.4)
[2017-06-07 07:06] LABS: BILIRUBIN, TOTAL 0.3 mg/dl (0.2-1.0); TOTAL PROTEIN 7.1 gm/dL (6.4-8.2)
[2017-06-07 07:14] LABS: HYPOCHROMIA SLIGHT; LYMPHOCYTE # 0.1 10*3/uL (1.3-4.4); NEUTROPHIL # 8.5 10*3/uL (2.3-7.9); NEUTROPHILS 99 % (47-73); PLATELET SUFFICIENCY NORMAL (NORMAL); POLYCHROMASIA SLIGHT; TOTAL CELLS COUNTED 100 #CELLS
[2017-06-07 07:15] LABS: THYROID STIM HORMONE (HS) 1.3 uIU/ml (0.358-4.75)
[2017-06-07 07:18] LABS: HEMOGLOBIN A1c 7.6 % (4.8-5.6)
[2017-06-07 07:39] LABS: FOLIC ACID 8.28 ng/mL (>5.38); VITAMIN D, 25-HYDROXY 30.6 ng/mL (30-100)
[2017-06-07 08:00] VITALS: BP 111/54
[2017-06-07 16:00] VITALS: BP 93/56
[2017-06-08 06:21] LABS: BASO % 0.1 % (0.0-1.0); HEMOGLOBIN 8.6 g/dl (14.0-18.0); IG # 0.1 10*3/uL (0.0-0.1); LYMPH # 0.7 10*3/uL (1.3-4.4); LYMPH % 3.7 % (27.0-41.0); MEAN CORPUSCULAR HGB 27.7 pg (27.0-31.0); MEAN CORPUSCULAR HGB CONC 30.7 g/dl (33.0-37.0); MEAN PLATELET VOLUME 10.3 fl (9.6-12.3); MONO # 1.2 10*3/uL (0.1-1.0); MONO % 6.3 % (3.0-9.0); NEUT # 17.1 10*3/uL (2.3-7.9); NEUT % 89.4 % (47.0-73.0); PLATELET COUNT AUTOMATED 290 10*3/uL (130-400); RED CELL DISTRI WIDTH 14.3 % (0-14.5); WHITE BLOOD COUNT 19.1 10*3/uL (4.8-10.8)
[2017-06-08 06:27] LABS: MEAN CELL VOLUME 90.3 fl (80.0-94.0)
[2017-06-08 06:31] LABS: BUN 32 mg/dl (7-24); CARBON DIOXIDE 36 mmol/L (21-32); CHLORIDE 98 mmol/L (98-107); EST GLOM FILT AFRICAN AMERICAN > 60 ml/min; GLUCOSE 126 mg/dL (65-99); POTASSIUM 3.8 mmol/L (3.5-5.1); SODIUM 140 mmol/L (136-145)
[2017-06-08 07:12] VITALS: BP 118/80
[2017-06-08 17:26] VITALS: BP 116/60
[2017-06-08 20:12] VITALS: BP 96/48
[2017-06-09] VITALS: BP 119/73
[2017-06-09 06:45] LABS: HEMATOCRIT 27.5 % (42.0-52.0); HEMOGLOBIN 8.5 g/dl (14.0-18.0); MEAN CELL VOLUME 90.8 fl (80.0-94.0); MEAN CORPUSCULAR HGB 28.1 pg (27.0-31.0); MEAN CORPUSCULAR HGB CONC 30.9 g/dl (33.0-37.0); MEAN PLATELET VOLUME 10.3 fl (9.6-12.3); PLATELET COUNT AUTOMATED 270 10*3/uL (130-400); RED BLOOD COUNT 3.03 10*6/uL (4.50-5.90); RED CELL DISTRI WIDTH 14.5 % (0-14.5); WHITE BLOOD COUNT 13.4 10*3/uL (4.8-10.8)
[2017-06-09 07:14] LABS: LYMPHOCYTE # 0.5 10*3/uL (1.3-4.4); MONOCYTE # 0.3 10*3/uL (0.1-1.0); NEUTROPHIL # 12.6 10*3/uL (2.3-7.9); NEUTROPHILS 94 % (47-73); PLATELET SUFFICIENCY NORMAL (NORMAL); POLYCHROMASIA SLIGHT; TOTAL CELLS COUNTED 100 #CELLS
[2017-06-09 07:29] LABS: ALBUMIN 2.1 gm/dl (3.1-4.5); ALKALINE PHOSPHATASE 70 U/L (45-117); BILIRUBIN, TOTAL 0.6 mg/dl (0.2-1.0); BUN 35 mg/dl (7-24); CARBON DIOXIDE 36 mmol/L (21-32); CHLORIDE 96 mmol/L (98-107); EST GLOM FILT AFRICAN AMERICAN > 60 ml/min; GLUCOSE 192 mg/dL (65-99); SGOT/AST 13 IU/L (3-35); SGPT/ALT 12 U/L (12-78); SODIUM 140 mmol/L (136-145); TOTAL PROTEIN 6.3 gm/dL (6.4-8.2)
[2017-06-09 08:00] VITALS: BP 118/58
[2017-06-09 12:00] VITALS: BP 101/53; BP 120/61
[2017-06-09 16:00] VITALS: BP 145/51
[2017-06-09 17:27] LABS: ABG BASE EXCESS 13.6 mmol/L (-2.0-2.0); ABG CO2 CONTENT 41.3 mmol/L (23-27); ABG HCO3 39.4 mmol/l (22-26); ARTERIAL BLOOD GAS PH 7.446 (7.35-7.45); ARTERIAL BLOOD GAS PO2 66.7 mmHg (80-90)
[2017-06-09 20:00] VITALS: BP 120/42
[2017-06-10 06:59] LABS: HEMATOCRIT 28.9 % (42.0-52.0); HEMOGLOBIN 8.9 g/dl (14.0-18.0); MEAN CELL VOLUME 88.7 fl (80.0-94.0); MEAN CORPUSCULAR HGB 27.3 pg (27.0-31.0); MEAN CORPUSCULAR HGB CONC 30.8 g/dl (33.0-37.0); MEAN PLATELET VOLUME 10.1 fl (9.6-12.3); PLATELET COUNT AUTOMATED 251 10*3/uL (130-400); RED BLOOD COUNT 3.26 10*6/uL (4.50-5.90); RED CELL DISTRI WIDTH 14.5 % (0-14.5); WHITE BLOOD COUNT 11.6 10*3/uL (4.8-10.8)
[2017-06-10 07:06] LABS: BUN 40 mg/dl (7-24); CARBON DIOXIDE 37 mmol/L (21-32); CHLORIDE 96 mmol/L (98-107); EST GLOM FILT AFRICAN AMERICAN > 60 ml/min; GLUCOSE 198 mg/dL (65-99); POTASSIUM 3.3 mmol/L (3.5-5.1); SODIUM 140 mmol/L (136-145)
[2017-06-10 07:26] LABS: LYMPHOCYTE # 0.2 10*3/uL (1.3-4.4); MONOCYTE # 0.3 10*3/uL (0.1-1.0); NEUTROPHILS 95 % (47-73); PLATELET SUFFICIENCY NORMAL (NORMAL); TOTAL CELLS COUNTED 100 #CELLS
[2017-06-10 08:00] VITALS: BP 136/80
[2017-06-10 16:00] VITALS: BP 114/70
[2017-06-10 20:00] VITALS: BP 125/54
[2017-06-11] VITALS: BP 117/66
[2017-06-11 07:14] LABS: HEMATOCRIT 28.2 % (42.0-52.0); HEMOGLOBIN 8.8 g/dl (14.0-18.0); MEAN CELL VOLUME 89.2 fl (80.0-94.0); MEAN CORPUSCULAR HGB 27.8 pg (27.0-31.0); MEAN CORPUSCULAR HGB CONC 31.2 g/dl (33.0-37.0); MEAN PLATELET VOLUME 10.2 fl (9.6-12.3); PLATELET COUNT AUTOMATED 270 10*3/uL (130-400); RED BLOOD COUNT 3.16 10*6/uL (4.50-5.90); RED CELL DISTRI WIDTH 14.5 % (0-14.5); WHITE BLOOD COUNT 10.7 10*3/uL (4.8-10.8)
[2017-06-11 07:28] LABS: POTASSIUM 3.4 mmol/L (3.5-5.1)
[2017-06-11 07:46] LABS: HYPOCHROMIA SLIGHT; LYMPHOCYTE # 0.3 10*3/uL (1.3-4.4); MONOCYTE # 0.2 10*3/uL (0.1-1.0); NEUTROPHIL # 10.2 10*3/uL (2.3-7.9); NEUTROPHILS 95 % (47-73); PLATELET SUFFICIENCY NORMAL (NORMAL); TOTAL CELLS COUNTED 100 #CELLS
[2017-06-11 08:00] VITALS: BP 123/74
[2017-06-11 12:00] VITALS: BP 133/66
[2017-06-11 16:00] VITALS: BP 146/74
[2017-06-11 20:00] VITALS: BP 118/58
[2017-06-12] VITALS: BP 139/71
[2017-06-12 08:00] VITALS: BP 118/64
[2017-06-12 08:21] LABS: POTASSIUM 3.7 mmol/L (3.5-5.1)
[2017-06-12 12:00] VITALS: BP 122/56
[2017-06-12 16:00] VITALS: BP 138/87
[2017-06-12 20:00] VITALS: BP 109/52
[2017-06-12 20:30] VITALS: BP 109/52
[2017-06-13] VITALS: BP 138/73
[2017-06-13 08:00] VITALS: BP 92/50; BP 922/50
[2017-06-13 12:00] VITALS: BP 124/61
[2017-06-13 16:00] VITALS: BP 115/73
[2017-06-13 20:00] VITALS: BP 107/62
[2017-06-14] VITALS: BP 115/59
[2017-06-14 08:00] VITALS: BP 124/70
[2017-06-14 12:00] VITALS: BP 96/50
[2017-06-14 16:00] VITALS: BP 106/58
[2017-06-14 20:00] VITALS: BP 132/39; BP 134/54
[2017-06-15] VITALS: BP 102/56
[2017-06-15 06:20] LABS: POTASSIUM 3.9 mmol/L (3.5-5.1)
[2017-06-15 08:00] VITALS: BP 140/100
[2017-06-15 11:00] VITALS: BP 134/80
[2017-06-15 12:00] VITALS: BP 119/58
[2017-06-15] MEDS ORDERED: AMLODIPINE BESYL5 MG PO (14:50)
[2017-06-15] MEDS ORDERED: DOXYCYCLINE MO100 M1 PO (14:50)
[2017-06-15] MEDS ORDERED: FUROSEMIDE40 MG PO (14:50)
[2017-06-15] MEDS ORDERED: PREDNISONE10 MG PO (14:50)
[2017-06-15] MEDS ORDERED: HUMALOG100 U/ML SC (14:50)
[2017-06-15] MEDS ORDERED: DUONEB 3 MG/3 ML3 M1 NEB (14:50)
[2017-06-15 16:00] VITALS: BP 114/84
== END 2017-06-15 18:11 | disposition other institution (70) | DRG 871 ==
LOC: ED 16:08 → 5E 17:50 → EDHOLD 17:50 → 5E 18:11
PROVIDERS: Emergency Medicine; Family Medicine; Hospitalist; Internal Medicine; Internal Medicine Critical Care Medicine
PROC: 5A09357 Assistance with Respiratory Ventilation, Less than 24 Consecutive Hours, Continuous Positive Airway Pressure (ICD-10-PCS; principal; 2017-06-14)
DX: A41.9 Sepsis, unspecified organism (principal); J15.6 Pneumonia due to other Gram-negative bacteria; N17.0 Acute kidney failure with tubular necrosis; J96.21 Acute and chronic respiratory failure with hypoxia; E43 Unspecified severe protein-calorie malnutrition; I50.33 Acute on chronic diastolic (congestive) heart failure; M62.82 Rhabdomyolysis; E66.01 Morbid (severe) obesity due to excess calories; E11.22 Type 2 diabetes mellitus with diabetic chronic kidney disease; J44.0 Chronic obstructive pulmonary disease with (acute) lower respiratory infection; L03.116 Cellulitis of left lower limb; L03.115 Cellulitis of right lower limb; J44.1 Chronic obstructive pulmonary disease with (acute) exacerbation; I25.5 Ischemic cardiomyopathy; N18.3 Chronic kidney disease, stage 3 (moderate); Z66 Do not resuscitate; Z51.5 Encounter for palliative care; I48.2 Chronic atrial fibrillation; D64.9 Anemia, unspecified; E55.9 Vitamin D deficiency, unspecified; E78.2 Mixed hyperlipidemia; I87.2 Venous insufficiency (chronic) (peripheral); E53.8 Deficiency of other specified B group vitamins; E11.649 Type 2 diabetes mellitus with hypoglycemia without coma; J20.9 Acute bronchitis, unspecified; R59.0 Localized enlarged lymph nodes; Z68.33 Body mass index [BMI] 33.0-33.9, adult; Z79.01 Long term (current) use of anticoagulants; Z79.4 Long term (current) use of insulin; Z79.82 Long term (current) use of aspirin; Z79.899 Other long term (current) drug therapy; Z87.891 Personal history of nicotine dependence; Z83.3 Family history of diabetes mellitus; Z82.3 Family history of stroke